=== PATIENT | female | born 1935 | race Caucasian/White ===

== ENCOUNTER 2019-04-19 17:03 | Observation (INO) | payer OTHER ==
--- OUTSIDE RECORDS SUMMARY | 2019-04-19 17:06 | XMS REPORT ---
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 Active Problem Insomnia, unspecified type G47.00 Active Problem Restless leg syndrome G25.81 Active Problem HTN, goal below 150/90 I10 Active Problem Osteoporosis, unspecified M81.0 Active osteoporosis type, unspecified pathological fracture presence Problem Mixed hyperlipidemia E78.2 Active Problem Depression with anxiety F41.8 Active Problem Vitamin D deficiency disease E55.9 Active Problem History of colon cancer Z85.038 Active Problem Osteoporosis without current M81.0 Active pathological fracture, unspecified osteoporosis type Problem History of uterine cancer Z85.42 Active Problem Osteoarthritis, unspecified M19.90 Active osteoarthritis type, unspecified site Problem GERD without esophagitis K21.9 Active Problem Hypothyroidism, unspecified type E03.9 Active Medications No Known Medications Results No Known Results Summary Purpose [facility] Submission
--- OUTSIDE RECORDS SUMMARY | 2019-04-19 17:06 | XMS REPORT ---
:1935 Author Organization [employer] Care Team Providers Name Role Phone Adan Turner Provider Role Unavailable Allergies, Adverse Reactions, Alerts Substance Reaction Event Type Decongestant Info Not Available Drug Allergy Problems Problem Type Condition Code Onset Dates Condition Status Assessment Vitamin D deficiency disease E55.9 Active Assessment History of colon cancer Z85.038 Active Assessment History of uterine cancer Z85.42 Active Assessment Osteoarthritis, unspecified M19.90 Active osteoarthritis type, unspecified site Problem Mixed hyperlipidemia E78.2 Active Assessment Mixed hyperlipidemia E78.2 Active Problem Depression with anxiety F41.8 Active Assessment GERD without esophagitis K21.9 Active Problem 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 Active Problem Insomnia, unspecified type G47.00 Active Problem Restless leg syndrome G25.81 Active Problem Vitamin D deficiency disease E55.9 Active Problem History of colon cancer Z85.038 Active Assessment 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 Active Assessment Insomnia, unspecified type G47.00 Active Problem Osteoporosis without current M81.0 Active pathological fracture, unspecified osteoporosis type Assessment Restless leg syndrome G25.81 Active Problem History of uterine cancer Z85.42 Active Problem Osteoarthritis, unspecified M19.90 Active osteoarthritis type, unspecified site Problem GERD without esophagitis K21.9 Active Problem Hypothyroidism, unspecified type E03.9 Active Assessment HTN, goal below 150/90 I10 Active Assessment Osteoporosis, unspecified M81.0 Active osteoporosis type, unspecified pathological fracture presence Assessment Hypothyroidism, unspecified type E03.9 Active Assessment Palpitations R00.2 Active Problem HTN, goal below 150/90 I10 Active Problem Osteoporosis, unspecified M81.0 Active osteoporosis type, unspecified pathological fracture presence Assessment Depression with anxiety F41.8 Active Medications Medication Code Code Instructions Start End Status Dosage System Date Date Amitriptyline [facility] [place] 73579335319 10 Orally Once Active as directed HCl a day Sotalol HCl [facility] [place] 2] 49988780625 120 mg Orally Active 1 tablet every 12 hrs Diltiazem HCl ER [facility] [place] 2] 67576903849 90 MG Orally Active 1 capsule Twice a day Ropinirole HCl NDC 81283934340 0.5 MG Orally Active 1 tablet Three times a day Prolia [facility] [place] 2] 79817845448 60 MG/ML Active 60 mg Subcutaneous every 6 months Diazepam ND 50449550518 2 MG Orally Active 1 tablet as Twice a day PRN needed Heart Palpitations Clobetasol [facility] [place] 2] 66879966322 0.05 % Active 1 application Propionate E Externally Twice a day Sotalol HCl [facility] [place] 2] 50110323514 120 MG Orally Active 1 tablet every 12 hrs Levothyroxine [facility] [place] 2] 56571854105 25 MCG Orally Active 1 tablet on Sodium Once a day an empty stomach in the morning Dexilant [facility] [place] 2[place] 63023655274 60 MG Orally Active 1 capsule Once a day Pravastatin [facility] [place] 2] 52738759438 40 MG Orally Active 1 tablet Sodium Once a day Acetaminophen [facility] [place] 2] 85751011796 500 MG Orally Active 1 capsule as every 6 hrs needed Vitamin D [facility] [place]NOTE 2] 30158971277 2000 UNIT Active 1 tablet Orally Once a day Eliquis 2.5 mg [facility] [place] 2] 06356036441 2.5 mg by mouth Active one twice daily Paroxetine HCl [facility] [place] 2] 98533640871 10 MG Orally Active 1 tablet in BID the morning Fluticasone [facility] [place] 2] 74070190884 50 MCG/ACT Sept Active 1 spray in Propionate Nasally Once a , each nostril 2018 Glucose [facility] [place]NOTE 2] [address]-74300 1 GM Orally as Sept Active as directed needed 2018 Amitriptyline [facility] [place]NOTE 2] 82027658810 10 MG Orally Active as directed HCl Once a day Results No Known Results Summary Purpose [employer]Works Submission
--- OUTSIDE RECORDS SUMMARY | 2019-04-19 17:06 | XMS REPORT ---
[...] Active Problem Hypothyroidism, unspecified type E03.9 Active Problem HTN, goal below 150/90 I10 Active Problem Osteoporosis, unspecified M81.0 Active osteoporosis type, unspecified pathological fracture presence Assessment GERD without esophagitis K21.9 Active Problem Mixed hyperlipidemia E78.2 Active Problem Depression with anxiety F41.8 Active Medications No Known Medications Results No Known Results Summary Purpose [employer] Submission
--- NOTE | 2019-04-19 17:57 | RAD REPORT ---
EXAM DESCRIPTION: RAD - Chest Single View - 04/19/2019 5:44 pm CLINICAL HISTORY: Abdominal pain, chest pain COMPARISON: None. TECHNIQUE: AP portable chest image was obtained 1739 hours . FINDINGS: Chronic interstitial changes are evident. No focal mass or consolidation identifiable. No acute failure or volume overload. Heart and vasculature are normal. No measurable pleural effusion and no pneumothorax. Left subclavia n pacemaker is in place. No acute bone finding suspected. No acute aortic findings suspected. IMPRESSION: No acute cardiopulmonary process.
[2019-04-19] MEDS ORDERED: PANTOPRAZOLE 40 MG INJ ONE (18:11)
[2019-04-19] MEDS ORDERED: NA CHLORIDE 0.9% 1,000 ML ONE (18:11)
[2019-04-19 18:35] LABS: Absolute Lymphocytes (CBC) 1.8 K/uL (0.7-4.9); Basophils % 0.5 % (0-1.3); Hematocrit 41.6 % (36.0-45.0); Lymphocytes % 32.6 % (15.3-44.8); MPV 7.7 fL (7.6-11.3)
[2019-04-19 18:53] LABS: Protime INR 1.03
[2019-04-19 18:59] LABS: ALT/SGPT 11 U/L (12-78); AST/SGOT 12 U/L (15-37); Albumin 3.5 g/dL (3.4-5.0); Alkaline Phosphatase 60 U/L (45-117); BUN Blood Urea Nitrogen 13 mg/dL (7-18); Bicarbonate 28 mmol/L (21-32); Bilirubin Direct 0.1 mg/dL (0-0.2); Bilirubin Total 0.4 mg/dL (0.2-1.0); Glucose Level 111 mg/dL (74-106); Lipase 58 U/L (73-393); Magnesium 2.1 mg/dL (1.8-2.4); NT PRO-BNP 330 pg/mL (<450); Potassium 3.9 mmol/L (3.5-5.1); Protein, Total 6.7 g/dL (6.4-8.2); Sodium Level 142 mmol/L (136-145); Troponin (Emerg Dept Use Only) < 0.02 ng/mL (0.0-0.045)
[2019-04-19 19:20] LABS: Urine Blood TRACE (NEG); Urine Glucose NEGATIVE (NEG); Urine Protein NEGATIVE (NEG); Urine Specific Gravity 1.015 (1.005-1.030)
--- NOTE | 2019-04-19 19:23 | ER ---
Nurse's Notes [facility] Name: Rachel Ramsay Age: 83 yrs Sex: Female : 1935 Arrival Date: 04/19/2019 Time: 17:05 Bed 28 Private MD: Diagnosis: Abdominal tenderness;Weakness;Gastrointestinal hemorrhage, unspecified-reported;Urinary tract infection, site not specified Presentation: 04/19 17:11 Presenting complaint: Patient states: abd pain chronic, black stools x 4 days. Also sr5 reports palpitations when she eats. Transition of care: patient was not received from another setting of care. Onset of symptoms was April 15, 2019. Risk Assessment: Do you want to hurt yourself or someone else? Patient reports no desire to harm self or others. Initial Sepsis Screen: Does the patient meet any 2 criteria? HR > 90 bpm. Care prior to arrival: None. 17:11 Method Of Arrival: Wheelchair sr5 17:11 Acuity: BRANDI 2 sr5 19:30 Initial Sepsis Screen: Does the patient have a suspected source of infection? No. jv1 Patient's initial sepsis screen is negative. Triage Assessment: 17:14 General: Appears ill, Behavior is cooperative, appropriate for age. sr5 Historical: - Allergies: 17:14 No Known Allergies; sr5 - PMHx: 17:14 chronic diarrhea; colon cancer; uterine cancer; hysterectomy; pacemaker; sr5 gastrointentional mucositis; - Immunization history:: Pneumococcal vaccine is not up to date, Flu vaccine is not up to date. - Social history:: Smoking status: Patient/guardian denies using tobacco, never smoked. - Ebola Screening: : Patient negative for fever greater than or equal to 101.5 degrees Fahrenheit, and additional compatible Ebola Virus Disease symptoms. - Family history:: not pertinent. Screenin:28 Abuse screen: Denies threats or abuse. Denies injuries from another. Nutritional ss screening: No deficits noted. Tuberculosis screening: Never had TB. Fall Risk None identified. Assessment: 18:28 General: Appears in no apparent distress. Behavior is calm, cooperative. Pain: ss Complains of pain in abdomen Pain currently is 0 out of 10 on a pain scale. at worst was 4 out of 10 on a pain scale. Quality of pain is described as aching, Is intermittent. Neuro: Level of Consciousness is awake, alert, obeys commands, Oriented to person, place, time, situation. Cardiovascular: Capillary refill < 3 seconds is brisk in bilateral fingers Patient's skin is warm and dry. Respiratory: Airway is patent Respiratory effort is even, unlabored, Respiratory pattern is regular, symmetrical, Denies cough, shortness of breath. GI: Reports chronic/ watery diarrhea now with black stools x 4 days. GI: Abdomen is non-distended, Bowel sounds present X 4 quads. Abd is soft and non tender X 4 quads. Patient currently denies nausea. : No signs and/or symptoms were reported regarding the genitourinary system. EENT: Nares are clear Oral mucosa is moist. Derm: Skin is intact, is fragile, is thin, Skin is pink, warm \T\ dry. Musculoskeletal: Circulation, motion, and sensation intact. Range of motion: intact in all extremities, Swelling absent. 19:30 Reassessment: pt went to CT scan. jv1 20:00 Reassessment: Patient and/or family updated on plan of care and expected duration. Pain jv1 level reassessed. Patient is alert, oriented x 3, equal unlabored respirations, skin warm/dry/pink. Patient denies pain at this time. Patient states symptoms have improved. pt came back from CT, assisted pt to urinate using bedpan. . 21:00 Reassessment: Patient appears in no apparent distress at this time. Patient and/or jv1 family updated on plan of care and expected duration. Pain level reassessed. Patient is alert, oriented x 3, equal unlabored respirations, skin warm/dry/pink. assisted pt to urinate using bedpan.. 21:54 Reassessment: Patient appears in no apparent distress at this time. Patient and/or jv1 family updated on plan of care and expected duration. Pain level reassessed. Patient is alert, oriented x 3, equal unlabored respirations, skin warm/dry/pink. Patient denies pain at this time. Patient states symptoms have improved. called report to Luciana BARBER. Vital Signs: 17:14 BP 130 / 75; Pulse 122; Resp 18; Temp 98.8; Pulse Ox 97% on R/A; Weight 64.41 kg; sr5 18:27 BP 136 / 59; Pulse 78; Resp 16; Pulse Ox 98% on R/A; ss 19:30 BP 148 / 55; Pulse 76; Resp 18; Temp 98; Pulse Ox 100% on R/A; jv1 20:30 BP 140 / 50; Pulse 72; Resp 18; Temp 98.2; Pulse Ox 98% on R/A; Pain 0/10; jv1 21:17 BP 150 / 59; Pulse 72; Resp 18; Temp 98; Pulse Ox 98% ; Pain 0/10; jv1 22:00 BP 149 / 89; Pulse 80; Resp 18; Temp 98.8; Pulse Ox 100% on R/A; mg2 ED Course: 17:05 Patient arrived in ED. as 17:13 Triage completed. sr5 17:14 Arm band placed on right wrist. sr5 17:19 Ap Humphrey MD is Attending Physician. yin 17:39 Jackie Bourgeois, ELISABETH is Primary Nurse. ss 17:43 XRAY Chest (1 view) In Process Unspecified. EDMS 18:27 No provider procedures requiring assistance completed. Inserted saline lock: 18 gauge mg2 in left EJ, using aseptic technique. Blood collected. by Dr Humphrey. 18:28 Patient has correct armband on for positive identification. Bed in low position. Call ss light in reach. 19:21 Joey Fuentes MD is Hospitalizing Provider. yin 19:31 CT Abd/Pelvis - Without Contrast In Process Unspecified. EDMS 19:32 CT completed. Patient tolerated procedure well. Patient moved to CT via stretcher. Patient moved back from CT. 21:00 Bladder scan completed. 349ml post void. jv1 21:27 Patient admitted, IV remains in place. intact. jv1 Administered Medications: 18:19 Drug: ProTONIX 80 mg Route: IVP; Site: left jugular; ss 22:08 Follow up: Response: No adverse reaction mg2 18:23 Drug: NS 0.9% 500 ml Route: IV; Rate: bolus; Site: left jugular; ss 21:13 Follow up: Response: No adverse reaction; IV Status: Completed infusion; IV Intake: jv1 500ml 21:00 Drug: Rocephin 1 grams Route: IV; Rate: per protocol; Site: left jugular; jv1 21:12 Follow up: Response: No adverse reaction jv1 22:07 Follow up: Response: No adverse reaction; IV Status: Completed infusion mg2 21:12 Drug: NS 0.9% 1000 ml Route: IV; Rate: 125 ml/hr; Site: left jugular; mg2 22:07 Follow up: Response: No adverse reaction; IV Status: Infusion continued upon admission mg2 Point of Care Testing: Guaiac: 18:29 Stool Guaiac: Negative; Stool Hemoccult Control: Pass; yin Intake: 21:13 IV: 500ml; Total: 500ml. jv1 Outcome: 19:22 Decision to Hospitalize by Provider. [facility] 21:27 Admitted to Med/surg family with patient, via stretcher, room 221. jv1 21:27 Condition: improved 21:27 Instructed on the need for admit, Demonstrated understanding of instructions. 22:09 Patient left the ED. mg2 Signatures: Dispatcher [employer] EDAp Lam MD MD cha Hagler, Reina Holliday Shelby, RN RN ss Stanley Campbell RN RN sr5 Manjinder Bejarano RN RN mg2 Radha German RN RN jv1
--- NOTE | 2019-04-19 19:24 | EDPHYS ---
Physician Documentation [facility] Name: Rachel Ramsay Age: 83 yrs Sex: Female : 1935 Arrival Date: 04/19/2019 Time: 17:05 Bed 28 Private MD: ZOYA Physician Ap Humphrey HPI: 04/19 18:25 This 83 yrs old Female presents to ER via Wheelchair with complaints of yin Black/Tarry Stools, Blood Pressure Problem. 18:25 The patient presents with abdominal pain in the upper abdomen, in the lower abdomen, yin abdominal distention. The patient presents to the emergency department with diarrhea, that is continuous. Onset: The symptoms/episode began/occurred 4 week(s) ago. Possible causes: unknown. The symptoms are aggravated by nothing. The symptoms are alleviated by nothing. Modifying factors: The symptoms are alleviated by nothing, the symptoms are aggravated by nothing. Historical: - Allergies: 17:14 No Known Allergies; sr5 - PMHx: 17:14 chronic diarrhea; colon cancer; uterine cancer; hysterectomy; pacemaker; sr5 gastrointentional mucositis; - Immunization history:: Pneumococcal vaccine is not up to date, Flu vaccine is not up to date. - Social history:: Smoking status: Patient/guardian denies using tobacco, never smoked. - Ebola Screening: : Patient negative for fever greater than or equal to 101.5 degrees Fahrenheit, and additional compatible Ebola Virus Disease symptoms. - Family history:: not pertinent. ROS: 18:25 Constitutional: Negative for fever, chills, and weight loss, Eyes: Negative for injury, yin pain, redness, and discharge, ENT: Negative for injury, pain, and discharge, Neck: Negative for injury, pain, and swelling, Respiratory: Negative for shortness of breath, cough, wheezing, and pleuritic chest pain, Back: Negative for injury and pain, : Negative for injury, bleeding, discharge, and swelling, MS/Extremity: Negative for injury and deformity, Skin: Negative for injury, rash, and discoloration, Neuro: Negative for headache, weakness, numbness, tingling, and seizure, Psych: Negative for depression, anxiety, suicide ideation, homicidal ideation, and hallucinations, Allergy/Immunology: Negative for hives, rash, and allergies, Endocrine: Negative for neck swelling, polydipsia, polyuria, polyphagia, and marked weight changes, Hematologic/Lymphatic: Negative for swollen nodes, abnormal bleeding, and unusual bruising. 18:25 Cardiovascular: Positive for palpitations. 18:25 Abdomen/GI: Positive for diarrhea, black stools. Exam: 18:25 Constitutional: This is a well developed, well nourished patient who is awake, alert, yin and in no acute distress. Head/Face: Normocephalic, atraumatic. Eyes: Pupils equal round and reactive to light, extra-ocular motions intact. Lids and lashes normal. Conjunctiva and sclera are non-icteric and not injected. Cornea within normal limits. Periorbital areas with no swelling, redness, or edema. ENT: Nares patent. No nasal discharge, no septal abnormalities noted. Tympanic membranes are normal and external auditory canals are clear. Oropharynx with no redness, swelling, or masses, exudates, or evidence of obstruction, uvula midline. Mucous membranes moist. Neck: Trachea midline, no thyromegaly or masses palpated, and no cervical lymphadenopathy. Supple, full range of motion without nuchal rigidity, or vertebral point tenderness. No Meningismus. Chest/axilla: Normal chest wall appearance and motion. Nontender with no deformity. No lesions are appreciated. Cardiovascular: Regular rate and rhythm with a normal S1 and S2. No gallops, murmurs, or rubs. Normal PMI, no JVD. No pulse deficits. Respiratory: Lungs have equal breath sounds bilaterally, clear to auscultation and percussion. No rales, rhonchi or wheezes noted. No increased work of breathing, no retractions or nasal flaring. Abdomen/GI: Soft, non-tender, with normal bowel sounds. No distension or tympany. No guarding or rebound. No evidence of tenderness throughout. Back: No spinal tenderness. No costovertebral tenderness. Full range of motion. Skin: Warm, dry with normal turgor. Normal color with no rashes, no lesions, and no evidence of cellulitis. MS/ Extremity: Pulses equal, no cyanosis. Neurovascular intact. Full, normal range of motion. Neuro: Awake and alert, GCS 15, oriented to person, place, time, and situation. Cranial nerves II-XII grossly intact. Motor strength 5/5 in all extremities. Sensory grossly intact. Cerebellar exam normal. Normal gait. Psych: Awake, alert, with orientation to person, place and time. Behavior, mood, and affect are within normal limits. 18:25 Abdomen/GI: Inspection: abdomen appears normal, Bowel sounds: normal, Palpation: abdomen is soft and non-tender, soft, nontender, Rectal exam: is unremarkable, rectal tone normal, Stool: guaiac negative, hemorrhoid(s), are not appreciated, mass, is not appreciated, swelling, is not appreciated, tenderness, is not appreciated. 18:29 Abdomen/GI: Rectal exam: fecal impaction, is not appreciated. yin 18:53 Musculoskeletal/extremity: DVT Exam: No signs of deep vein thrombosis. no pain, no yin swelling, no tenderness, negative Homans' sign noted on exam, no appreciated bluish discoloration, no erythema, no increased warmth. Vital Signs: 17:14 BP 130 / 75; Pulse 122; Resp 18; Temp 98.8; Pulse Ox 97% on R/A; Weight 64.41 kg; sr5 18:27 BP 136 / 59; Pulse 78; Resp 16; Pulse Ox 98% on R/A; ss 19:30 BP 148 / 55; Pulse 76; Resp 18; Temp 98; Pulse Ox 100% on R/A; jv1 20:30 BP 140 / 50; Pulse 72; Resp 18; Temp 98.2; Pulse Ox 98% on R/A; Pain 0/10; jv1 21:17 BP 150 / 59; Pulse 72; Resp 18; Temp 98; Pulse Ox 98% ; Pain 0/10; jv1 22:00 BP 149 / 89; Pulse 80; Resp 18; Temp 98.8; Pulse Ox 100% on R/A; mg2 Procedures: 18:54 Peripheral line: by aseptic technique a peripheral line was placed in the left external yin jugular vein. MDM: 17:19 Patient medically screened. [facility] 18:30 Data reviewed: vital signs, nurses notes, lab test result(s), EKG, radiologic studies, [facility] CT scan, plain films. 04/19 17:28 Order name: Basic Metabolic Panel; Complete Time: 19:18 yin 04/19 17:28 Order name: CBC with Diff; Complete Time: 19:18 [facility] 04/19 17:28 Order name: LFT's; Complete Time: 19:18 [facility] 04/19 17:28 Order name: Magnesium; Complete Time: 19:18 [facility] 04/19 17:28 Order name: NT PRO-BNP; Complete Time: 19:18 [facility] 04/19 17:28 Order name: PT-INR; Complete Time: 19:18 [facility] 04/19 17:28 Order name: Troponin (emerg Dept Use Only); Complete Time: 19:18 [facility] 04/19 17:28 Order name: Lipase; Complete Time: 19:18 [facility] 04/19 17:28 Order name: Type And Screen; Complete Time: 19:31 [facility] 04/19 17:28 Order name: Urine Culture [facility] 04/19 19:16 Order name: Urine Dipstick--Ancillary (enter results); Complete Time: 19:31 cm6 04/19 20:04 Order name: ABO/RH no charge EDTN 04/19 20:42 Order name: CBC with Automated Diff EDMS 04/19 20:42 Order name: CBC with Automated Diff EDMS 04/19 17:28 Order name: XRAY Chest (1 view); Complete Time: 18:54 [facility] 04/19 17:28 Order name: EKG; Complete Time: 17:29 [facility] 04/19 17:28 Order name: Cardiac monitoring; Complete Time: 18:27 [facility] 04/19 17:28 Order name: EKG - Nurse/Tech; Complete Time: 18:27 [facility] 04/19 18:32 Order name: CT Abd/Pelvis - Without Contrast [facility] 04/19 20:42 Order name: Heart Healthy EDTN 04/19 20:42 Order name: Comprehensive Metabolic Panel [facility] 04/19 20:42 Order name: Comprehensive Metabolic Panel [facility] 04/19 20:42 Order name: Magnesium EDMS 04/19 20:42 Order name: Magnesium EDMS 04/19 20:42 Order name: Phosphorus EDMS 04/19 20:42 Order name: Phosphorus EDMS 04/19 17:28 Order name: IV Saline Lock; Complete Time: 18:27 [facility] 04/19 17:28 Order name: Labs collected and sent; Complete Time: 18:27 [facility] 04/19 17:28 Order name: O2 Per Protocol; Complete Time: 18:27 [facility] 04/19 17:28 Order name: O2 Sat Monitoring; Complete Time: 18:27 [facility] 04/19 17:28 Order name: Urine Dipstick-Ancillary (obtain specimen); Complete Time: 21:12 [facility] 04/19 17:28 Order name: IV Saline Lock - Large Bore; Complete Time: 18:23 [facility] 04/19 18:12 Order name: Labs - recollect needed: blue top, green top and T\T\S recollect please; eb Complete Time: 18:23 04/19 18:18 Order name: Labs - recollect needed: lavender top recollect; Complete Time: 18:23 04/19 20:58 Order name: Bladder Scanner: ordered by Dr. Fuentes if above 500ml, PVR, insert castro jv1 catheter.; Complete Time: 21:11 Administered Medications: 18:19 Drug: ProTONIX 80 mg Route: IVP; Site: left jugular; ss 22:08 Follow up: Response: No adverse reaction mg2 18:23 Drug: NS 0.9% 500 ml Route: IV; Rate: bolus; Site: left jugular; ss 21:13 Follow up: Response: No adverse reaction; IV Status: Completed infusion; IV Intake: jv1 500ml 21:00 Drug: Rocephin 1 grams Route: IV; Rate: per protocol; Site: left jugular; jv1 21:12 Follow up: Response: No adverse reaction jv1 22:07 Follow up: Response: No adverse reaction; IV Status: Completed infusion mg2 21:12 Drug: NS 0.9% 1000 ml Route: IV; Rate: 125 ml/hr; Site: left jugular; mg2 22:07 Follow up: Response: No adverse reaction; IV Status: Infusion continued upon admission mg2 Point of Care Testing: Guaiac: 18:29 Stool Guaiac: Negative; Stool Hemoccult Control: Pass; [facility] Disposition: 04/19/19 19:22 Hospitalization ordered by Joey Fuentes for Observation. Preliminary diagnosis are Abdominal tenderness, Weakness, Gastrointestinal hemorrhage, unspecified - reported, Urinary tract infection, site not specified. - Bed requested for Telemetry/MedSurg (observation). - Status is Observation. mg2 - Condition is Fair. - Problem is new. - Symptoms have improved. UTI on Admission? Yes Signatures: Dispatcher [employer] EDTN Ap Humphrey MD MD cha Smirch, Shelby, RN RN ss Terrie Birch RN RN Stanley Campbell RN RN sr5 Tyra Rios Manjinder Bejarano RN RN mg2 Radha German RN RN jv1 Corrections: (The following items were deleted from the chart) 20:56 19:22 Hospitalization Ordered by Joey Fuentes MD for Observation. Preliminary cg diagnosis is Abdominal tenderness; Weakness; Gastrointestinal hemorrhage, unspecified - reported; Urinary tract infection, site not specified. Bed requested for Telemetry/MedSurg (observation). Status is Observation. Condition is Fair. Problem is new. Symptoms have improved. UTI on Admission? Yes. yin 20:58 19:37 Bladder Scanner ordered. yin jv1 22:09 20:56 04/19/2019 19:22 Hospitalization Ordered by Joey Fuentes MD for Observation. mg2 Preliminary diagnosis is Abdominal tenderness; Weakness; Gastrointestinal hemorrhage, unspecified - reported; Urinary tract infection, site not specified. Bed requested for Telemetry/MedSurg (observation). Status is Observation. Condition is Fair. Problem is new. Symptoms have improved. UTI on Admission? Yes. cg
--- NOTE | 2019-04-19 19:49 | RAD REPORT ---
EXAM DESCRIPTION: CT - Abdomen Pelvis Wo Contrast - 04/19/2019 7:31 pm CLINICAL HISTORY: ABD PAIN Patient provided history of colon and uterine cancer, prior hysterectomy COMPARISON: Abdomen Pelvis W/Wo Contrast dated 10/23/2018 TECHNIQUE: Axial [address] imaging of the abdomen and pelvis was performed without IV contrast. No IV contrast was given because of allergy, abnormal renal function, patient refusal or physician re quest. No oral contrast given. All CT scans are performed using dose optimization technique as appropriate and may include automated exposure control or mA/KV adjustment according to patient size. FINDINGS: No suspicious findings in the lung bases. The liver, spleen and pancreas show no suspicious findings on non-contrast imaging. Multiple liver cy sts match prior imaging. Gallbladder and biliary tree show no suspicious findings. No hydronephrosis or suspicious renal mass. Isodense exophytic mass lateral left kidney corresponds t o a cyst on the comparison examination. A larger exophytic cyst is present lateral mid left kidney. N o significant adrenal finding. Isodense renal masses and pyelonephritis cannot be excluded in the abs ence of IV contrast. The urinary bladder is without significant finding. Uterus is absent. Ovaries ar e absent or atrophic. No adnexal abnormality seen. No gastric dilatation or wall thickening. No dilated small bowel. Right hemicolectomy surgical change s are present. No acute small bowel finding. No abnormality at the anastomotic site. Sigmoid divertic ulosis is present without diverticulitis. No free air, free fluid or inflammatory stranding. No edmar ia, mass or bulky lymphadenopathy. No suspicious bony findings. IMPRESSION: Non-contrast enhanced CT abdomen and pelvis imaging show no significant or suspicious fi nding. No evidence for a residual or recurrent neoplastic process. Isodense renal masses and pyelonephritis are not excluded on noncontrast imaging. Full assessment is limited is the absence of IV contrast.
[2019-04-19] MEDS ORDERED: ONDANSETRON 4 MG/2 ML VIAL IV PRN (20:38)
[2019-04-19] MEDS: PANTOPRAZOLE 40MG TABLET PO SCH (20:41)
[2019-04-19] MEDS ORDERED: MAGNES/ALUMIN/SIMET 30ML UCUP PO PRN (20:41)
--- NOTE | 2019-04-19 20:46 | P.HP ---
Certification for Inpatient Patient admitted to: Observation With expected LOS: <2 Midnights Patient will require the following post-hospital care: None Practitioner: I am a practitioner with admitting privileges, knowledge of patient current condition, hospital course, and medical plan of care. Services: Services provided to patient in accordance with Admission requirements found in Title 42 Section 412.3 of the Code of Federal Regulations Patient History Date of Service: 04/19/19 Reason for admission: Abdominal pain, diarrhea History of Present Illness: 83-year-old female with past medical history of colon cancer came to ER with diarrhea and abdominal pain. Patient that and had chronic diarrhea but worsened for the last 2 days associated with abdominal distention and pain. Complains of black dark stools. denies any hematemesis. Also complains of abdominal distention. no dysuria. no nausea vomiting. denies any fever or chills No sick contacts or recent travel Patient was assessed in the ER and was admitted for dehydration and abdominal pain control. - Past Medical/Surgical History Past Medical History: Reviewed- Non-Contributory -: Colon cancer -: Chronic diarrhea Past Surgical History: Reviewed- Non-Contributory -: hysterectomy - Family History Family History: Reviewed- Non-Contributory - Social History Smoking Status: Never smoker Review of Systems 10-point ROS is otherwise unremarkable Physical Examination - Vital Signs Temperature: 98.8 F Blood Pressure: 132/76 Pulse: 112 Respirations: 18 - Physical Exam General: Alert, In no apparent distress, Oriented x3 HEENT: Atraumatic, Normocephalic Neck: Supple, 2+ carotid pulse no bruit Respiratory: Clear to auscultation bilaterally, Normal air movement Cardiovascular: No edema, Regular rate/rhythm, Normal S1 S2 Capillary refill: <2 Seconds Gastrointestinal: Soft and benign, W/out hepatosplenomegaly, Distended Musculoskeletal: No clubbing, No swelling Integumentary: No rashes, No breakdown, Other (intertrigo) Neurological: Normal speech, Normal strength at 5/5 x4 extr Lymphatics: No axilla or inguinal lymphadenopathy Urinary: Other (No bladder distention) External genitalia: Deferred Rectal: Deferred - Studies Laboratory Data (last 24 hrs) 04/19/19 18:20: PT 12.1, INR 1.03 04/19/19 18:20: WBC 5.6, Hgb 14.2, Hct 41.6, Plt Count 218 04/19/19 18:20: Sodium 142, Potassium 3.9, BUN 13, Creatinine 0.90, Glucose 111 H, Magnesium 2.1, Total Bilirubin 0.4, AST 12 L, ALT 11 L, Alkaline Phosphatase 60, Lipase 58 L Assessment and Plan - Problems (Diagnosis) (1) Abdominal pain Current Visit: Yes Status: Acute (2) Diarrhea Current Visit: Yes Status: Acute (3) Colitis Current Visit: Yes Status: Acute - Plan Gastroenteritis Abdominal pain To rule out GI bleed History of colon cancer Plan Monitor under inside sales supervisor the CBC daily Will get an FOBT Pain control IV Hydration Start on PPI Monitor renal parameters GI/DVT prophylaxis Advanced directives full code Discharge Plan: Home - Advance Directives Does patient have a Living Will: No Does patient have a Durable POA for Healthcare: No Time Spent Managing Pts Care (In Minutes): 43
[2019-04-19] MEDS: NYSTATIN OINT 15 GM TUBE TOP SCH (21:00)
[2019-04-19] MEDS ORDERED: CEFTRIAXONE/SWI 1gm 1 GM/10 ML SYR ONE (21:06)
[2019-04-19 22:54] VITALS: BMI 23.2
[2019-04-20] MEDS: NA CHLORIDE 0.9% 1,000 ML IV SCH ×2 (00:29→16:33)
[2019-04-20] MEDS ORDERED: DIAZEPAM 2 MG TABLET PO PRN (00:52)
[2019-04-20] MEDS: ROPINIROLE HCL 0.25 MG TAB PO SCH ×4 (01:22→21:00)
[2019-04-20] MEDS: ACETAMINOPHEN 500 MG TAB PO PRN ×3 (01:23→22:00)
[2019-04-20 05:05] LABS: Absolute Lymphocytes (CBC) 2.5 K/uL (0.7-4.9); Basophils % 0.5 % (0-1.3); Hematocrit 39.2 % (36.0-45.0); Lymphocytes % 46.7 % (15.3-44.8); MPV 7.8 fL (7.6-11.3); RBC Red Blood Cell Count 4.25 M/uL (3.86-4.86)
[2019-04-20 05:29] LABS: Albumin 3.1 g/dL (3.4-5.0); Bilirubin Total 0.4 mg/dL (0.2-1.0); Magnesium 2.3 mg/dL (1.8-2.4); Phosphorus 2.5 mg/dL (2.5-4.9); Potassium 4.1 mmol/L (3.5-5.1)
[2019-04-20] MEDS: PANTOPRAZOLE 40MG TABLET PO SCH ×2 (08:33→16:31)
[2019-04-20] MEDS: NYSTATIN OINT 15 GM TUBE TOP SCH ×3 (08:34→21:59)
--- NOTE | 2019-04-20 11:44 | EKG ---
Test Date: 2019-04-19 Test Time: 17:32:12 Manager Hospital: [facility] MEASUREMENT RESULTS: Intervals: Rate: 88 AL: 122 QRSD: 78 QT: 340 QTc: 411 [place]: P: 60 AL: 122 QRS: 60 T: 69 INTERPRETIVE STATEMENTS: Normal sinus rhythm Nonspecific ST abnormality Abnormal ECG No previous ECG available for comparison Electronically Signed On 04-20-19 11:42:03 HEALTHCARE ADVISORY SERVICES MANAGER by Felipe Shane
[2019-04-20] MEDS ORDERED: INFLUENZA VACCINE (for 3y+) 0.5 ML DOSE IMVAC ONE (12:00)
--- NOTE | 2019-04-20 12:28 | P.PN ---
Subjective Date of Service: 04/20/19 Chief Complaint: Abdominal pain, diarrhea Subjective: C/O voiced (=-multiple complains today -state poor po intake since 3 months due to dentures issues, states pureed diet but poorly getting from the assisted living facility states diarrhea with occ dark stools since weeks but no bowel movt since yesterday -states she has colon resection in the past but biopsy of sample was benign -states issues with ingrown toe nails,although states she sees podiatry - feels weak all the time -) Review of Systems 10-point ROS is otherwise unremarkable Physical Examination - Vital Signs Temperature: 97.3 F Blood Pressure: 122/60 Pulse: 64 Respirations: 18 Pulse Ox (%): 97 - Physical Exam General: Alert, Oriented x3 HEENT: Atraumatic, Normocephalic, PERRLA Neck: Supple, 2+ carotid pulse no bruit Respiratory: Clear to auscultation bilaterally, Normal air movement Cardiovascular: Normal pulses, Regular rate/rhythm, Normal S1 S2 Gastrointestinal: Normal bowel sounds, Soft and benign Musculoskeletal: No clubbing, No swelling, No contractures Integumentary: No rashes, No breakdown, No significant lesion Neurological: Normal gait, Normal speech, Normal strength at 5/5 x4 extr, Normal tone - Studies Laboratory Data (last 24 hrs) 04/19/19 18:20: PT 12.1, INR 1.03 04/19/19 18:20: WBC 5.6, Hgb 14.2, Hct 41.6, Plt Count 218 04/19/19 18:20: Sodium 142, Potassium 3.9, BUN 13, Creatinine 0.90, Glucose 111 H, Magnesium 2.1, Total Bilirubin 0.4, AST 12 L, ALT 11 L, Alkaline Phosphatase 60, Lipase 58 L Medications List Reviewed: Yes Assessment & Plan - Problems (Diagnosis) (1) Abdominal pain Current Visit: Yes Status: Acute (2) Colitis Current Visit: Yes Status: Acute (3) Diarrhea Current Visit: Yes Status: Acute Physician Review: Patient Assessed, Agree with Above Assessment and Plan Physician Review Additional Text: # 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 -unclear from her report if any recent chnage in pattern of stool output now - will follow bowel movt and see if dark -doubt she will need a repeat GI evla or colonoscopy now - noted hx of no colon cancer in the past # weakness and multiple symptoms complains - appears patient wants increased help at home due to her weakness but not willing to seek NH due to cost -will consult case mgt in am and see if any added support can be arranged for her at the assisted living facility # Weight loss -due to reduced calorie intake from edentulous teeth -start [facility] soft diet # CHF/AICD hx -stable
[2019-04-20] MEDS ORDERED: LEVOTHYROXINE SOD 0.05 MG TABLET PO SCH (12:34)
[2019-04-20] MEDS: PARoxetine HCl 10 MG TAB PO SCH (12:34)
[2019-04-20] MEDS ORDERED: HOME MED 1 EA UNK (Omeprazole Magnesium [Prilosec Otc] 20 MG) PO PRN (12:34)
[2019-04-20] MEDS ORDERED: ACETAMINOPHEN 500 MG TAB PO PRN (12:34)
[2019-04-20] MEDS: APIXABAN 2.5 MG TABLET PO SCH (21:00)
[2019-04-20] MEDS: HOME MED 1 EA UNK (Cholecalciferol (Vitamin D3) [Vitamin D3] 1 CAP) PO SCH (21:00)
[2019-04-20] MEDS: DIAZEPAM 2 MG TABLET PO SCH (21:00)
[2019-04-20] MEDS: DILTIAZEM HCL 90 MG PO SCH (21:00)
[2019-04-20] MEDS: SOTALOL HCL 80 MG TAB PO SCH (21:00)
[2019-04-20] MEDS ORDERED: AMITRIPTYLINE 10 MG TAB PO SCH ×2 (21:00)
[2019-04-21] MEDS: PARoxetine HCl 10 MG TAB PO SCH (06:00)
[2019-04-21] MEDS ORDERED: LEVOTHYROXINE SOD 0.05 MG TABLET PO SCH (06:30)
[2019-04-21 06:41] LABS: Basophils % 0.3 % (0-1.3); Hematocrit 36.3 % (36.0-45.0); Lymphocytes % 43.8 % (15.3-44.8); MPV 7.8 fL (7.6-11.3); RBC Red Blood Cell Count 3.92 M/uL (3.86-4.86)
[2019-04-21] MEDS: PANTOPRAZOLE 40MG TABLET PO SCH (07:30)
--- NOTE | 2019-04-21 08:10 | P.DS ---
Admission Date: 04/19/19 Discharge Date: 04/21/19 Primary Care Provider: Dr. Turner Disposition: ROUTINE DISCHARGE Discharge Condition: GOOD Reason for Admission: Abdominal pain, diarrhea Consultations: none Procedures: Ct scan: FINDINGS: No suspicious findings in the lung bases. The liver, spleen and pancreas show no suspicious findings on non-contrast imaging. Multiple liver cysts match prior imaging. Gallbladder and biliary tree show no suspicious findings. No hydronephrosis or suspicious renal mass. Isodense exophytic mass lateral left kidney corresponds to a cyst on the comparison examination. A larger exophytic cyst is present lateral mid left kidney. No significant adrenal finding. Isodense renal masses and pyelonephritis cannot be excluded in the absence of IV contrast. The urinary bladder is without significant finding. Uterus is absent. Ovaries are absent or atrophic. No adnexal abnormality seen. No gastric dilatation or wall thickening. No dilated small bowel. Right hemicolectomy surgical changes are present. No acute small bowel finding. No abnormality at the anastomotic site. Sigmoid diverticulosis is present without diverticulitis. No free air, free fluid or inflammatory stranding. No hernia, mass or bulky lymphadenopathy. No suspicious bony findings. IMPRESSION: Non-contrast enhanced CT abdomen and pelvis imaging show no significant or suspicious finding. No evidence for a residual or recurrent neoplastic process. Isodense renal masses and pyelonephritis are not excluded on noncontrast imaging. Full assessment is limited is the absence of IV contrast. Medical problem List: Abdominal pain with likely viral gastroenteritis Chronic diarrhea History of colon cancer CAD with pacemaker Atrial fibrillation on chronic anti coagulation therapy Hypertension Hyperlipidemia Depression with anxiety Hypothyroidism GERD Ingrown toenail Brief History of Present Illness: 83-year-old female presented to the emergency room with abdominal pain. Patient with history of colon cancer in the past. Initial CT scan unremarkable. Patient was admitted for further evaluation. Hospital Course: Patient presented with abdominal pain. Patient was admitted for observation and evaluation. CT scan unremarkable. Patient reports a history of chronic diarrhea with history of colon cancer. Patient also reports a history of chronic diarrhea. Patient did well in her stay. At discharge she is without significant abdominal pain. She is able to tolerate a diet. Patient likely with viral gastroenteritis. Patient may continue with heart healthy diet. Due to her chronic diarrhea, patient may take Imodium as needed for diarrhea. Recommend to follow up with GI as an outpatient to further monitor and address. Patient has an appointment here soon. Patient may require colonoscopy in the future. Patient with history of CAD with pacemaker in place, hypertension and atrial fibrillation on chronic anti coalition therapy. At discharge she will continue with her medications including Eliquis 2.5 mg 1 pill twice daily, Betapace 120 mg 1 pill twice daily, and diltiazem 90 mg 1 pill twice daily. Recommend to follow up with cardiology to further monitor and address. Patient with hyperlipidemia. At discharge will continue with pravastatin 40 mg daily. Patient with hypothyroidism. At discharge she will continue with levothyroxine 50 mcg daily. Patient with depression and anxiety. She will continue with Paxil 40 mg daily and Valium 2 mg twice daily. Patient with history of GERD. At discharge she will continue with Prilosec 20 mg daily. Patient also has history of chronic ingrown toenail. Will recommend podiatry evaluation and treatment in the future. Vital Signs/Physical Exam: Temp Pulse Resp BP Pulse Ox 97.2 F 69 17 107/53 L 90 L 04/21/19 04:00 04/21/19 04:00 04/21/19 04:00 04/21/19 04:00 04/21/19 04:00 General: Alert, In no apparent distress, Oriented x3, Cooperative HEENT: Atraumatic Neck: Supple Respiratory: Clear to auscultation bilaterally, Normal air movement Cardiovascular: Normal pulses, Regular rate/rhythm Gastrointestinal: Normal bowel sounds, Soft and benign, Non-distended, No tenderness, No masses, No rebound, No guarding Musculoskeletal: No erythema, No tenderness, No warmth Integumentary: No tenderness/swelling, No erythema, No warmth, No cyanosis Neurological: Normal speech, Normal strength at 5/5 x4 extr, Normal tone, Normal affect Laboratory Data at Discharge: WBC 4.6 K/uL (4.3-10.9) D 04/21/19 05:48 Hgb 12.1 g/dL (12.0-15.0) 04/21/19 05:48 Hct 36.3 % (36.0-45.0) 04/21/19 05:48 Plt Count 181 K/uL (152-406) 04/21/19 05:48 PT 12.1 SECONDS (9.5-12.5) 04/19/19 18:20 INR 1.03 04/19/19 18:20 Sodium 144 mmol/L (136-145) 04/20/19 04:33 Potassium 4.1 mmol/L (3.5-5.1) 04/20/19 04:33 BUN 10 mg/dL (7-18) 04/20/19 04:33 Creatinine 0.75 mg/dL (0.55-1.3) 04/20/19 04:33 Glucose 87 mg/dL (74-106) 04/20/19 04:33 Phosphorus 2.5 mg/dL (2.5-4.9) 04/20/19 04:33 Magnesium 2.3 mg/dL (1.8-2.4) 04/20/19 04:33 Total Bilirubin 0.4 mg/dL (0.2-1.0) 04/20/19 04:33 AST 12 U/L (15-37) L 04/20/19 04:33 ALT 11 U/L (12-78) L 04/20/19 04:33 Alkaline Phosphatase 45 U/L (45-117) 04/20/19 04:33 Lipase 58 U/L (73-393) L 04/19/19 18:20 Home Medications: Acetaminophen [Pain Relief Extra Strength] 500 mg PO BID PRN 04/19/19 Amitriptyline HCl 10 mg PO BEDTIME 04/19/19 Apixaban [Eliquis *] 2.5 mg PO BID 04/19/19 Cholecalciferol (Vitamin D3) [Vitamin D3] 1 cap PO BID 04/19/19 Levothyroxine Sodium [Synthroid] 50 mcg PO DAILY 04/19/19 Omeprazole Magnesium [Prilosec Otc] 20 mg PO DAILY PRN 04/19/19 PARoxetine HCl [Paxil*] 10 mg PO [id number] 04/19/19 Pravastatin Sodium [Pravachol] 40 mg PO BEDTIME 04/19/19 Ropinirole HCl [Requip*] 0.5 mg PO TID 04/19/19 Sotalol HCl [Betapace*] 120 mg PO BID 04/19/19 diazePAM [Valium*] 2 mg PO BID 04/19/19 dilTIAZem HCL [Diltiazem HCl] 90 mg PO BID 04/19/19 Patient Discharge Instructions: 1. Recommend follow up with PCP in 1 week to follow up this hospitalization. 2. Patient presented with abdominal pain. Patient was admitted for observation and evaluation. CT scan unremarkable. Patient reports a history of chronic diarrhea with history of colon cancer. Patient also reports a history of chronic diarrhea. Patient did well in her stay. At discharge she is without significant abdominal pain. She is able to tolerate a diet. Patient likely with viral gastroenteritis. Patient may continue with heart healthy diet. Due to her chronic diarrhea, patient may take Imodium as needed for diarrhea. Recommend to follow up with GI as an outpatient to further monitor and address. Patient has an appointment here soon. Patient may require colonoscopy in the future. 3. Patient with history of CAD with pacemaker in place, hypertension and atrial fibrillation on chronic anti coalition therapy. At discharge she will continue with her medications including Eliquis 2.5 mg 1 pill twice daily, Betapace 120 mg 1 pill twice daily , and diltiazem 90 mg 1 pill twice daily. Recommend to follow up with cardiology to further monitor and address. 4. Patient with hyperlipidemia. At discharge will continue with pravastatin 40 mg daily. 5. Patient with hypothyroidism. At discharge she will continue with levothyroxine 50 mcg daily. 6. Patient with depression and anxiety. She will continue with Paxil 40 mg daily and Valium 2 mg twice daily. 7. Patient with history of GERD. At discharge she will continue with Prilosec 20 mg daily. 8. Patient also has history of chronic ingrown toenail. Will recommend podiatry evaluation and treatment in the future. Diet: AHA Activity: Fall precautions Time spent managing pt's care (in minutes): 55
[2019-04-21] MEDS: SOTALOL HCL 80 MG TAB PO SCH ×2 (09:00→10:05)
[2019-04-21] MEDS: HOME MED 1 EA UNK (Cholecalciferol (Vitamin D3) [Vitamin D3] 1 CAP) PO SCH (09:00)
[2019-04-21] MEDS: ROPINIROLE HCL 0.25 MG TAB PO SCH (09:00)
[2019-04-21] MEDS: NYSTATIN OINT 15 GM TUBE TOP SCH (09:00)
[2019-04-21] MEDS: DILTIAZEM HCL 90 MG PO SCH (09:00)
[2019-04-21] MEDS: APIXABAN 2.5 MG TABLET PO SCH (09:00)
[2019-04-21] MEDS: DIAZEPAM 2 MG TABLET PO SCH (09:00)
[2019-04-21 12:45] VITALS: O2SAT 95
[2019-04-21 13:40] VITALS: BP 129/63; TEMP 98.7
[2019-04-21] MEDS ORDERED: DILTIAZEM HCL 60 MG TAB PO SCH (21:00)
[2019-04-21] MEDS ORDERED: VITAMIN D 1000 UNIT TAB PO SCH (21:00)
== END 2019-04-21 12:18 | disposition home or self-care (01) ==
LOC: ER 17:03 → ERHOLD 21:16 → 2ND 21:55
PROVIDERS: ADMIT Family Medicine; ATTEND Family Medicine
DX: R10.9 Unspecified abdominal pain (principal); R19.7 Diarrhea, unspecified; Z85.038 Personal history of other malignant neoplasm of large intestine; I25.10 Atherosclerotic heart disease of native coronary artery without angina pectoris; Z95.0 Presence of cardiac pacemaker; I48.91 Unspecified atrial fibrillation; Z79.01 Long term (current) use of anticoagulants; I10 Essential (primary) hypertension; E78.5 Hyperlipidemia, unspecified; F41.8 Other specified anxiety disorders; E03.9 Hypothyroidism, unspecified; K21.9 Gastro-esophageal reflux disease without esophagitis; L60.0 Ingrowing nail; R63.4 Abnormal weight loss; Z68.23 Body mass index [BMI] 23.0-23.9, adult; Z23 Encounter for immunization
CPT/HCPCS: 96365; 96361; 93005; 87088; 85025 ×3; 87086; 80048; 36415 ×2; 86900; 83735 ×2; 86850; 84100; 85610; 86901; 80076; 81003; 84484; 83690; 80053; 83880; 74176; 71045; 90471; 96375; 99285; Q2035; C9113; J0696; J7030 ×3; J2405; G0378 ×3

== ENCOUNTER 2019-06-04 05:23 | Observation (INO) | payer MEDICARE, OTHER ==
--- OUTSIDE RECORDS SUMMARY | 2019-06-04 05:25 | XMS REPORT ---
[...] osteoporosis type, unspecified pathological fracture presence Assessment Palpitations R00.2 Active Problem Mixed hyperlipidemia E78.2 Active Problem Depression with anxiety F41.8 Active Medications Medication Code System Code Instructions Start End Date Status Dosage Date Diazepam [facility] 2001 82920140036 2 MG Orally Twice Active 1 tablet a day PRN Heart as needed Palpitations Results No Known Results Summary Purpose eClinicalWorks Submission
--- OUTSIDE RECORDS SUMMARY | 2019-06-04 05:25 | XMS REPORT ---
[...] Medications Results No Known Results Summary Purpose [employer] Submission
--- OUTSIDE RECORDS SUMMARY | 2019-06-04 05:25 | XMS REPORT ---
[...] End Status Dosage System Date Date Amitriptyline [facility] 36168493779 10 Orally Once Active as directed HCl a day Sotalol HCl [facility] 37627864556 120 mg Orally Active 1 tablet every 12 hrs Diltiazem HCl ER [facility] 22026267403 90 MG Orally Active 1 capsule Twice a day Ropinirole HCl NDC 72031812395 0.5 MG Orally Active 1 tablet Three times a day Prolia [facility] 97314857936 60 MG/ML Active 60 mg Subcutaneous every 6 months Diazepam ND 32079317350 2 MG Orally Active 1 tablet as Twice a day PRN needed Heart Palpitations Clobetasol [facility] 44927061748 0.05 % Active 1 application Propionate E Externally Twice a day Sotalol HCl [facility] 81305683233 120 MG Orally Active 1 tablet every 12 hrs Levothyroxine [facility] 25425227869 25 MCG Orally Active 1 tablet on Sodium Once a day an empty stomach in the morning Dexilant [facility] 94531652084 60 MG Orally Active 1 capsule Once a day Pravastatin [facility] 24975011751 40 MG Orally Active 1 tablet Sodium Once a day Acetaminophen [facility] 22062946506 500 MG Orally Active 1 capsule as every 6 hrs needed Vitamin D [facility] 06212548611 2000 UNIT Active 1 tablet Orally Once a day Eliquis 2.5 mg [facility] 90079248236 2.5 mg by mouth Active one twice daily Paroxetine HCl [facility] 13005973111 10 MG Orally Active 1 tablet in BID the morning Fluticasone [facility] 52074534197 50 MCG/ACT Sept Active 1 spray in Propionate Nasally Once a , each nostril 2018 Glucose [facility] 71618-46567 1 GM Orally as Sept Active as directed needed 2018 Amitriptyline [facility] 71073300014 10 MG Orally Active as directed HCl Once a day Results No Known Results Summary Purpose eClinicalWorks Submission
--- OUTSIDE RECORDS SUMMARY | 2019-06-04 05:26 | XMS REPORT ---
:1935 Author Organization eClinicalWorks Care Team Providers Name Role Phone Adan Turner Provider Role Unavailable Allergies, Adverse Reactions, Alerts Substance Reaction Event Type Decongestant Info Not Available Drug Allergy Problems Problem Type Condition Code Onset Dates Condition Status Assessment History of diverticulitis Z87.19 Active Assessment Dermatitis L30.9 Active Assessment Vitamin D deficiency disease E55.9 Active [...] Start End Status Dosage System Date Date Paroxetine HCl [facility] 40297128390 10 MG Orally Active 1 tablet in BID the morning Sotalol HCl [facility] 98242737840 120 MG Orally Active 1 tablet every 12 hrs Carafate [facility] 05621835481 1 GM/10ML Active 10 ml on an Orally Twice a empty stomach day Prolia [facility] 79837638918 60 MG/ML Active 60 mg Subcutaneous every 6 months Clobetasol [facility] 43780611199 0.05 % May 15May Active 1 application Propionate Externally 2019 05, Twice a day 2019 Pravastatin [facility] 31782609889 40 MG Orally Active 1 tablet Sodium Once a day Eliquis 2.5 mg [facility] 06504129834 2.5 mg by Active one mouth twice daily Diazepam [facility] 47919862676 2 MG Orally Active 1/2 tablet as Twice a day needed PRN Heart Palpitations Dexilant [facility] 40013488342 60 MG Orally Inactive 1 capsule Once a day Diltiazem HCl ER [facility] 22997864063 90 MG Orally Active 1 capsule Twice a day Omeprazole [facility] 06456172702 40 MG Orally Active 1 capsule 30 Once a day minutes before morning meal Vitamin D [facility] 68351285514 2000 UNIT Active 1 tablet Orally Once a day Glucose [facility] 76006-51336 1 GM Orally as Sept Active as directed needed 2018 Amitriptyline [facility] 59820439007 10 MG Orally Active as directed HCl Once a day Sotalol HCl [facility] 94760676742 120 mg Orally Active 1 tablet every 12 hrs Ropinirole HCl [facility] 69572805771 0.5 MG Orally Active 1 tablet Three times a day Levothyroxine [facility] 75813359990 25 MCG Orally Active 1 tablet on Sodium Once a day an empty stomach in the morning Results No Known Results Summary Purpose eClinicalWorks Submission
--- OUTSIDE RECORDS SUMMARY | 2019-06-04 05:26 | XMS REPORT ---
[...] Medications Results No Known Results Summary Purpose [employer] Submission
[2019-06-04 06:06] LABS: Protime INR 1.11
[2019-06-04 06:08] LABS: Absolute Lymphocytes (CBC) 2.7 K/uL (0.7-4.9); Basophils % 0.4 % (0-1.3); Hematocrit 41.9 % (36.0-45.0); Lymphocytes % 46.2 % (15.3-44.8); RBC Red Blood Cell Count 4.58 M/uL (3.86-4.86)
[2019-06-04] MEDS ORDERED: NA CHLORIDE 0.9% 500 ML ONE (06:15)
[2019-06-04 06:34] LABS: ALT/SGPT 9 U/L (12-78); AST/SGOT 11 U/L (15-37); Albumin 3.6 g/dL (3.4-5.0); Alkaline Phosphatase 57 U/L (45-117); BUN Blood Urea Nitrogen 21 mg/dL (7-18); Bicarbonate 29 mmol/L (21-32); Bilirubin Direct 0.1 mg/dL (0-0.2); Bilirubin Total 0.4 mg/dL (0.2-1.0); Glucose Level 105 mg/dL (74-106); Magnesium 1.9 mg/dL (1.8-2.4); NT PRO-BNP 2261 pg/mL (<450); Potassium 3.3 mmol/L (3.5-5.1); Sodium Level 144 mmol/L (136-145); Troponin (Emerg Dept Use Only) < 0.02 ng/mL (0.0-0.045)
--- NOTE | 2019-06-04 07:56 | ER ---
Nurse's Notes [facility] Name: Rachel Ramsay Age: 83 yrs Sex: Female : 1935 Arrival Date: 06/04/2019 Time: 05:25 Bed 5 Private MD: Diagnosis: Palpitations Presentation: 06/04 05:39 Presenting complaint: Patient states: Reports abnormally high and low blood pressure ea reading and palpitations. States " I think my pacemaker is malfunctioning, I have an appointment to see Dr. Mcpherson at 11 AM for this problem". Transition of care: patient was not received from another setting of care. Onset of symptoms was June 04, 2019. Risk Assessment: Do you want to hurt yourself or someone else? Patient reports no desire to harm self or others. Initial Sepsis Screen: Does the patient meet any 2 criteria? HR > 90 bpm. Does the patient have a suspected source of infection? No. Patient's initial sepsis screen is negative. Care prior to arrival: None. 05:39 Method Of Arrival: Wheelchair ea 05:39 Acuity: BRANDI 3 ea Triage Assessment: 05:43 General: Appears in no apparent distress. Behavior is appropriate for age. Pain: Denies ea pain. Cardiovascular: Patient's skin is warm and dry. Historical: - Allergies: 05:49 "histamines"; ea 05:49 Betadine; ea - Home Meds: 05:49 amitriptyline 10 mg Oral tab 1 tab daily [Active]; Carafate 100 mg/mL Oral susp 10 mL 4 ea times per day [Active]; diazepam 2 mg Oral tab 2 tabs [Active]; Eliquis 2.5 mg oral tab 1 tab 2 times per day [Active]; levothyroxine 25 mcg tab 1 tab once daily [Active]; paroxetine HCl 10 mg oral tab 1 tab once daily [Active]; pravastatin 40 mg oral tab 1 tab once daily [Active]; ropinirole 0.5 mg oral tab 1 tab 3 times per day [Active]; sotalol 120 mg Oral tab 1 tab 2 times per day [Active]; - PMHx: 05:49 chronic diarrhea; colon cancer; gastrointentional mucositis; hysterectomy; Pacemaker; ea uterine cancer; - Immunization history:: Adult Immunizations up to date. - Coronavirus screen:: The patient has NOT traveled to [place] in the past 14 days. - Social history:: Smoking status: Patient denies any tobacco usage or history of. - Ebola Screening: : No symptoms or risks identified at this time. Screenin:42 Abuse screen: Denies threats or abuse. Nutritional screening: No deficits noted. ea Tuberculosis screening: No symptoms or risk factors identified. Fall Risk None identified. Assessment: 05:44 General: Appears in no apparent distress. Behavior is appropriate for age. Pain: Denies ea pain. Neuro: Level of Consciousness is awake, alert, obeys commands. Cardiovascular: Patient's skin is warm and dry. Cardiovascular: Parent/caregiver reports patient has had palpitations. Respiratory: Airway is patent Respiratory effort is even, unlabored, Respiratory pattern is regular, symmetrical. Derm: Skin is pink, warm \\T\\ dry. 07:00 Reassessment: RECD REPORT FROM LATANYA BARBER. 83YO WF P/W IRREGULAR PULSE AND HTN. H/O HTN bp AND PACEMAKER. ALL CURRENT ORDERS COMPLETE. 08:00 Reassessment: ADMIT IN PROCESS. PT HR REMAINS IRREGULAR. bp Vital Signs: 05:42 BP 142 / 103; Pulse 90; Resp 18; Temp 98; Pulse Ox 99% ; Weight 64.41 kg; Height 5 ft. ea 2 in. (157.48 cm); Pain 0/10; 05:57 BP 147 / 90; Pulse 133; Resp 18; Pulse Ox 100% ; ea 07:00 BP 116 / 67; Pulse 90; Resp 12; Pulse Ox 99% ; bp 09:00 BP 101 / 59; Pulse 101; Resp 18; Temp 98; Pulse Ox 98% ; bp 05:42 Body Mass Index 25.97 (64.41 kg, 157.48 cm) ea ED Course: 05:25 Patient arrived in ED. ds1 05:42 Triage completed. ea 05:43 Patient has correct armband on for positive identification. Placed in gown. Bed in low ea position. Call light in reach. Side rails up X2. Adult w/ patient. sustainability purchasing agent on. Pulse ox on. NIBP on. 05:43 Arm band placed on right wrist. Patient placed in an exam room, on a stretcher, on ea pulse oximetry. 05:43 Patient maintains SpO2 saturation greater than 95% on room air. ea 05:43 EKG done, by ED staff, reviewed by Bradley Malave MD. ds4 05:50 Inserted saline lock: 22 gauge in left antecubital area, using aseptic technique. ea ,using aseptic technique. Per Kota Harding RN Blood collected. 05:55 Troponin (emerg Dept Use Only) Sent. ds4 05:55 Basic Metabolic Panel Sent. ds4 05:55 CBC with Diff Sent. ds4 05:55 LFT's Sent. ds4 05:55 PT-INR Sent. ds4 05:55 Magnesium Sent. ds4 05:55 NT PRO-BNP Sent. ds4 05:59 Armida Maldonado FNP-C is PHCP. kb 05:59 Bradley Malave MD is Attending Physician. kb 07:16 Woodrow Jay, RN is Primary Nurse. bp 07:55 Jamie Ricketts DO is Hospitalizing Provider. kb 09:56 No provider procedures requiring assistance completed. Patient admitted, IV remains in bp place. Administered Medications: 06:26 Drug: NS 0.9% 500 ml Route: IV; Rate: bolus; Site: left antecubital; ea 09:58 Follow up: IV Status: Completed infusion; IV Intake: 500ml bp 08:15 Drug: Potassium Chloride 20 mEq Route: PO; bp 09:58 Follow up: Response: No adverse reaction bp Intake: 09:58 IV: 500ml; Total: 500ml. bp Outcome: 07:55 Decision to Hospitalize by Provider. kb 09:55 Admitted to Tele accompanied by tech, via wheelchair, room 207, with chart, Report bp called to DEUCE BARBER 09:55 Condition: stable 09:55 Instructed on the need for admit. 10:19 Patient left the ED. iw Signatures: Armida Maldonado FNP-C FNP-Adeola Murguia ds1 Cece Bolton, RN ELISABETH iw Hector Shipley ds4 Latanya Garcia RN RN ea Peltier, Brian, RN RN bp
--- NOTE | 2019-06-04 07:57 | EDPHYS ---
Physician Documentation [facility] Name: Rachel Ramsay Age: 83 yrs Sex: Female : 1935 Arrival Date: 06/04/2019 Time: 05:25 Bed 5 Private MD: ED Physician Bradley Malave HPI: 06/04 06:14 This 83 yrs old Female presents to ER via Wheelchair with complaints of kb Irregular Pulse, High Blood Pressure. 06:14 The patient presents with a history of irregular heart beat. Context: The symptoms kb occur at rest. Onset: The symptoms/episode began/occurred have been going on for a long time, but "got bad" this week. Palpitations on and off all day yesterday and through the night. Duration: The patient or guardian reports multiple episodes, with no pattern. Modifying factors: The symptoms are aggravated by nothing. The symptoms are alleviated by nothing. Associated signs and symptoms: Pertinent negatives: chest pain, lightheadedness, SOB, syncope, near-syncope. Severity of symptoms: At their worst the symptoms were moderate in the emergency department the symptoms are unchanged. The patient has experienced similar episodes in the past. The patient has not recently seen a physician. Pt reports she came in for palpitations that have been intermittent since yesterday morning. States she has had this multiple times in the past. states "the longest the palps have lasted is 3 hours, but they have been on and off all day yesterday and last night this time." Has appt for follow up tomorrow at [address] Mcpherson. . Historical: - Allergies: 05:49 "histamines"; ea 05:49 Betadine; ea - Home Meds: 05:49 amitriptyline 10 mg Oral tab 1 tab daily [Active]; Carafate 100 mg/mL Oral susp 10 mL 4 ea times per day [Active]; diazepam 2 mg Oral tab 2 tabs [Active]; Eliquis 2.5 mg oral tab 1 tab 2 times per day [Active]; levothyroxine 25 mcg tab 1 tab once daily [Active]; paroxetine HCl 10 mg oral tab 1 tab once daily [Active]; pravastatin 40 mg oral tab 1 tab once daily [Active]; ropinirole 0.5 mg oral tab 1 tab 3 times per day [Active]; sotalol 120 mg Oral tab 1 tab 2 times per day [Active]; - PMHx: 05:49 chronic diarrhea; colon cancer; gastrointentional mucositis; hysterectomy; Pacemaker; ea uterine cancer; - Immunization history:: Adult Immunizations up to date. - Coronavirus screen:: The patient has NOT traveled to [place] in the past 14 days. - Social history:: Smoking status: Patient denies any tobacco usage or history of. - Ebola Screening: : No symptoms or risks identified at this time. ROS: 06:11 Constitutional: Negative for fever, chills, and weight loss, ENT: Negative for injury, kb pain, and discharge, Neck: Negative for injury, pain, and swelling, Respiratory: Negative for shortness of breath, cough, wheezing, and pleuritic chest pain, Abdomen/GI: Negative for abdominal pain, nausea, vomiting, diarrhea, and constipation, Back: Negative for injury and pain, : Negative for injury, bleeding, discharge, and swelling, MS/Extremity: Negative for injury and deformity, Skin: Negative for injury, rash, and discoloration, Neuro: Negative for headache, weakness, numbness, tingling, and seizure. 06:11 Cardiovascular: Positive for palpitations. Exam: 06:11 Constitutional: This is a well developed, well nourished patient who is awake, alert, kb and in no acute distress. Head/Face: Normocephalic, atraumatic. ENT: Nares patent. No nasal discharge, no septal abnormalities noted. Tympanic membranes are normal and external auditory canals are clear. Oropharynx with no redness, swelling, or masses, exudates, or evidence of obstruction, uvula midline. Mucous membranes moist. Neck: Trachea midline, no thyromegaly or masses palpated, and no cervical lymphadenopathy. Supple, full range of motion without nuchal rigidity, or vertebral point tenderness. No Meningismus. Chest/axilla: Normal chest wall appearance and motion. Nontender with no deformity. No lesions are appreciated. Respiratory: Lungs have equal breath sounds bilaterally, clear to auscultation and percussion. No rales, rhonchi or wheezes noted. No increased work of breathing, no retractions or nasal flaring. Abdomen/GI: Soft, non-tender, with normal bowel sounds. No distension or tympany. No guarding or rebound. No evidence of tenderness throughout. Back: No spinal tenderness. No costovertebral tenderness. Full range of motion. Skin: Warm, dry with normal turgor. Normal color with no rashes, no lesions, and no evidence of cellulitis. MS/ Extremity: Pulses equal, no cyanosis. Neurovascular intact. Full, normal range of motion. Neuro: Awake and alert, GCS 15, oriented to person, place, time, and situation. Cranial nerves II-XII grossly intact. Motor strength 5/5 in all extremities. Sensory grossly intact. Cerebellar exam normal. Normal gait. 06:11 Cardiovascular: Rate: tachycardic, Rhythm: regular, Pulses: no pulse deficits are appreciated. Vital Signs: 05:42 BP 142 / 103; Pulse 90; Resp 18; Temp 98; Pulse Ox 99% ; Weight 64.41 kg; Height 5 ft. ea 2 in. (157.48 cm); Pain 0/10; 05:57 BP 147 / 90; Pulse 133; Resp 18; Pulse Ox 100% ; ea 07:00 BP 116 / 67; Pulse 90; Resp 12; Pulse Ox 99% ; bp 09:00 BP 101 / 59; Pulse 101; Resp 18; Temp 98; Pulse Ox 98% ; bp 05:42 Body Mass Index 25.97 (64.41 kg, 157.48 cm) ea MDM: 05:59 Patient medically screened. kb 06:10 Data reviewed: vital signs, nurses notes. Data interpreted: Pulse oximetry: on room air kb is 100 %. Interpretation: normal. 07:55 Counseling: I had a detailed discussion with the patient and/or guardian regarding: the kb historical points, exam findings, and any diagnostic results supporting the discharge/admit diagnosis, lab results, radiology results, the need for further work-up and treatment in the hospital. Physician consultation: Jamie Ricketts DO was contacted at 07:55, regarding admission, to the telemetry unit. patient's condition, and will see patient in ED, shortly. 02 05:38 Order name: Basic Metabolic Panel 06/04 05:38 Order name: CBC with Diff 06/04 05:38 Order name: LFT's 06/04 05:38 Order name: Magnesium 06/04 05:38 Order name: NT PRO-BNP 06/04 05:38 Order name: PT-INR 06/04 05:38 Order name: Troponin (emerg Dept Use Only) 06/04 05:52 Order name: Glucose, Ancillary Testing; Complete Time: 06:08 EDMS 06/04 06:11 Order name: CBC with Automated Diff; Complete Time: 06:23 EDMS 06/04 06:12 Order name: Protime (+INR); Complete Time: 06:23 EDMS 06/04 06:34 Order name: Basic Metabolic Panel; Complete Time: 06:50 EDMS 06/04 06:34 Order name: Liver (Hepatic) Function; Complete Time: 06:50 EDMS 06/04 06:35 Order name: Troponin (Emerg Dept Use Only); Complete Time: 06:50 EDMS 06/04 06:35 Order name: NT PRO-BNP; Complete Time: 06:50 EDMS 06/04 05:38 Order name: XRAY Chest (1 view) 06/04 05:38 Order name: EKG; Complete Time: 05:40 06/04 05:38 Order name: Cardiac monitoring; Complete Time: 05:43 06/04 05:38 Order name: EKG - Nurse/Tech; Complete Time: 05:43 06/04 05:38 Order name: IV Saline Lock; Complete Time: 05:51 06/04 05:38 Order name: Labs collected and sent; Complete Time: 05:51 06/04 05:38 Order name: O2 Per Protocol; Complete Time: 05:43 4 06/04 05:38 Order name: O2 Sat Monitoring; Complete Time: 05:51 06/04 06:35 Order name: Magnesium; Complete Time: 06:50 EDMS 06/04 10:06 Order name: RAD; Complete Time: 10:06 EDMS Administered Medications: 06:26 Drug: NS 0.9% 500 ml Route: IV; Rate: bolus; Site: left antecubital; ea 09:58 Follow up: IV Status: Completed infusion; IV Intake: 500ml bp 08:15 Drug: Potassium Chloride 20 mEq Route: PO; bp 09:58 Follow up: Response: No adverse reaction bp Disposition: 06/05 08:23 Co-signature as Attending Physician, Bradley Malave MD I agree with the assessment and plan of care. Disposition: 06/04/19 07:55 Hospitalization ordered by Jamie Ricketts for Inpatient Admission. Preliminary diagnosis is Palpitations. - Bed requested for Telemetry/MedSurg (Inpatient). - Status is Inpatient Admission. iw - Condition is Stable. - Problem is new. - Symptoms are unchanged. Signatures: Dispatcher [employer] EDMS Armida Maldonado, PRECISION LENS POLISHER-C PRECISION LENS POLISHER-Ckb RafaelTina hines Cece Pacheco, RN RN iw Latanya Garcia, Woodrow Hernandez RN, ea, Bradley Galvan RN, MD MD tw4 Corrections: (The following items were deleted from the chart) 06/04 09:14 07:55 Hospitalization Ordered by Jamie Ricketts DO for Inpatient Admission. Preliminary bd diagnosis is Palpitations. Bed requested for Telemetry/MedSurg (Inpatient). Status is Inpatient Admission. Condition is Stable. Problem is new. Symptoms are unchanged. kb 10:19 09:14 06/04/2019 07:55 Hospitalization Ordered by Jamie Ricketts DO for Inpatient iw Admission. Preliminary diagnosis is Palpitations. Bed requested for Telemetry/MedSurg (Inpatient). Status is Inpatient Admission. Condition is Stable. Problem is new. Symptoms are unchanged. bd
[2019-06-04] MEDS ORDERED: POTASSIUM CL SA 10 MEQ TAB PO ONE (08:21)
--- NOTE | 2019-06-04 08:36 | P.HP ---
Certification for Inpatient Patient admitted to: Observation With expected LOS: <2 Midnights Patient will require the following post-hospital care: None Practitioner: I am a practitioner with admitting privileges, knowledge of patient current condition, hospital course, and medical plan of care. Services: Services provided to patient in accordance with Admission requirements found in Title 42 Section 412.3 of the Code of Federal Regulations Patient History Date of Service: 06/04/19 Primary Care Provider: Dr. Adan Turner; Cardiology-Dr. Mcpherson Reason for admission: Palpitations History of Present Illness: 83 yo CF with history of pacemaker/Atrial fibrillation on chronic anticoagulation, hypothyroidism, and hyperlipidemia. She presented with palpitations over the last 3 days. She has been taking her mediation-Betapace and Eliquis. She she was to see her stonemason apprentice today to further evaluate the palpitations. She also reports some nasal drainage with dizziness. Other symptoms include fever, chills, headaches. Does report that her son was recently sick with a viral illness. She has had poor oral intake as well. Patient came to the ER for further evaluation. In the ER patient evaluated. Patient had heart rate in the 120s to 130s in the ER with atrial flutter. Patient was given IV fluid bolus with improvement. Rate now all better controlled. White count 5.9, hemoglobin 14. Platelet count 243. Lymphocytes elevated at 46. Sodium 144, potassium 3.3, BUN of 21, creatinine 0.9 with a GFR 55. Glucose 105. Troponin unremarkable. BNP 2261. Chest x-ray unremarkable. Influenza test/strep test pending at this time. Patient was admitted for further evaluation and observation. When I saw the patient in the ER, she appeared stable. She did reported dry mouth and poor oral intake. Some mild headache, chills, left-sided blurry vision noted. Allergies No Known Allergies Allergy (Verified 04/19/19 22:35) Home medications list reviewed: Yes Home Medications: Acetaminophen [Pain Relief Extra Strength] 500 mg PO BID PRN 04/19/19 Amitriptyline HCl 10 mg PO BEDTIME 04/19/19 Apixaban [Eliquis *] 2.5 mg PO BID 04/19/19 Cholecalciferol (Vitamin D3) [Vitamin D3] 1 cap PO BID 04/19/19 Levothyroxine Sodium [Synthroid] 50 mcg PO DAILY 04/19/19 Omeprazole Magnesium [Prilosec Otc] 20 mg PO DAILY PRN 04/19/19 PARoxetine HCl [Paxil*] 10 mg PO [id number] 04/19/19 Pravastatin Sodium [Pravachol] 40 mg PO BEDTIME 04/19/19 Ropinirole HCl [Requip*] 0.5 mg PO TID 04/19/19 Sotalol HCl [Betapace*] 120 mg PO BID 04/19/19 diazePAM [Valium*] 2 mg PO BID 04/19/19 dilTIAZem HCL [Diltiazem HCl] 90 mg PO BID 04/19/19 - Past Medical/Surgical History Diabetic: No -: History of colon cancer -: 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. She is a . - Family History Family History: Reviewed- Non-Contributory - Social History Smoking Status: Never smoker Alcohol use: No CD- Drugs: No Caffeine use: No Place of Residence: Senior Living ([facility]) Review of Systems General: Fever, Chills, Malaise, As per HPI Eyes: Unremarkable ENT: Nose Discharge, Nose Congestion, As per HPI Respiratory: As per HPI Cardiovascular: Light Headedness, As per HPI Gastrointestinal: Unremarkable Genitourinary: Unremarkable Musculoskeletal: Unremarkable Integumentary: Unremarkable Neurological: As per HPI Lymphatics: Unremarkable Physical Examination - Physical Exam General: Alert, In no apparent distress, Oriented x3, Cooperative HEENT: Atraumatic, Normocephalic, Other (Dry mucous membranes) Neck: Supple Respiratory: Clear to auscultation bilaterally, Normal air movement Cardiovascular: Irregular heart rate/rhythm (AFib rate controlled) Gastrointestinal: Normal bowel sounds, Soft and benign, Non-distended, No tenderness, No masses, No rebound, No guarding Musculoskeletal: No erythema, No tenderness, No warmth Integumentary: No tenderness/swelling, No erythema, No warmth, No cyanosis Neurological: Normal speech, Normal strength at 5/5 x4 extr, Normal tone, Normal affect - Studies Laboratory Data (last 24 hrs) 06/04/19 05:49: PT 13.1 H, INR 1.11 06/04/19 05:49: WBC 5.9, Hgb 14.3, Hct 41.9, Plt Count 243 06/04/19 05:49: Sodium 144, Potassium 3.3 L, BUN 21 H, Creatinine 0.97, Glucose 105, Magnesium 1.9, Total Bilirubin 0.4, AST 11 L, ALT 9 L, Alkaline Phosphatase 57 Assessment and Plan - Plan Impression: Palpitations with history of atrial fibrillation on chronic anti coagulation therapy and pacemaker Dehydration/acute renal injury likely related to acute viral syndrome suspect influenza Hyperlipidemia Hypothyroidism Depression Restless leg syndrome Chronic diarrhea related to radiation therapy History of colon cancer Plan: Palpitations with history of atrial fibrillation on chronic anti coagulation therapy and pacemaker: Patient we admitted for further evaluation and observation. Patient with palpitations likely related to dehydration/acute renal injury. Suspect acute viral syndrome. Will need to evaluate for influenza. Son recently sick with viral illness. Will provide IV fluid bolus. Will continue with IV fluids. Will start Tamiflu if influenza test positive. Cardiology consulted to further evaluate. Will have pacemaker interrogated. Will monitor telemetry and cardiac enzymes. Will restart home medication including Betapace, Eliquis, pravastatin and levothyroxine. Will check tsh/ free T4. Anticipate improvement over the next 24 hr. Await further recommendations from cardiology. Dehydration/acute renal injury likely related to acute viral syndrome suspect influenza: Will provide IV fluid bolus. Will continue with maintenance IV fluids with replacement of electrolytes. Will test for influenza and strep. If abnormal patient will require Tamiflu. Hyperlipidemia: Restart home medication of pravastatin 40 mg daily. Hypothyroidism: Will check tsh and free T4 due to palpitations. Will continue with home medication of levothyroxine 25 mcg daily. Depression: Continue home medication of Paxil 10 mg daily. Restless leg syndrome: Obtain and restart home medication. 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 History of colon cancer: This appears stable at this time. Discharge Plan: Other (Assisted living facility-[facility]) Plan to discharge in: 24 Hours - Advance Directives Does patient have a Living Will: Yes Does patient have a Durable POA for Healthcare: Yes - Code Status/Comfort Care Code Status Assessed: Yes (Patient is full code) Time Spent Managing Pts Care (In Minutes): 55
--- NOTE | 2019-06-04 08:51 | EKG ---
Test Date: 2019-06-04 Test Time: 07:09:43 Systems Requirements Planner: CHRISTOPHER MEASUREMENT RESULTS: Intervals: Rate: 87 KS: 96 QRSD: 152 QT: 448 QTc: 539 [place]: P: 94 KS: 96 QRS: -87 T: 85 INTERPRETIVE STATEMENTS: Rhythm consistent with DDD pacing with sinus and Atrial-sensed ventricular-paced rhythm and AV paced rhythm and both atrial and ventricular sensed rhythms Right atrial enlargement Abnormal ECG Compared to ECG 06/04/2019 05:41:42 no significant change from previous ECG Electronically Signed On 06-04-19 08:51:19 VISUAL MERCHANDISE MANAGER by Alex Mcpherson
--- NOTE | 2019-06-04 08:53 | EKG ---
Test Date: 2019-06-04 Test Time: 05:41:42 Design Supervisor: LÓPEZ MEASUREMENT RESULTS: Intervals: Rate: 104 AR: 200 QRSD: 84 QT: 364 QTc: 478 [place]: P: 94 AR: 200 QRS: 67 T: 66 INTERPRETIVE STATEMENTS: Rhythm consistent with DDD pacing with atrial paced ventricular sensed rhythm and premature atrial complexes Abnormal ECG Compared to ECG 04/19/2019 17:32:12 Atrial premature complex(es) now present RSR' in V1 or V2 now present Possible ischemia now present Sinus rhythm no longer present ST (T wave) deviation still present Electronically Signed On 06-04-19 08:52:19 WORKSITE WELLNESS PRACTITIONER by Alex Mcpherson
--- NOTE | 2019-06-04 10:03 | RAD REPORT ---
EXAM DESCRIPTION: RAD - Chest Single View - 06/04/2019 6:06 am CLINICAL HISTORY: ..Palpitations, hypertension COMPARISON: Chest Single View dated 04/19/2019 TECHNIQUE: AP portable chest image was obtained 06/04/2019 6:06 am . FINDINGS: No focal mass or consolidation. Interstitial markings are mildly increased over the compar saige. Vasculature is similar to comparison. No cardiomegaly. Pacemaker remains in place. No measurabl e pleural effusion and no pneumothorax. No acute bony abnormality seen. No acute aortic findings susp ected. IMPRESSION: No focal mass or consolidation. Interstitial pattern is fractionally increased and could represent very minimal edema or infiltrate.
[2019-06-04] MEDS ORDERED: NA CHLORIDE 0.9% 500 ML IV ONE (10:33)
[2019-06-04] MEDS ORDERED: OSELTAMIVIR 75 MG CAP PO SCH (10:33)
[2019-06-04] MEDS ORDERED: ONDANSETRON 4 MG/2 ML VIAL IV PRN (10:33)
[2019-06-04 11:17] VITALS: BMI 25.4
[2019-06-04] MEDS: APIXABAN 2.5 MG TABLET PO SCH ×2 (11:53→21:40)
[2019-06-04] MEDS: NACHLORIDE 0.45% 1,000 ML IV SCH ×2 (11:53→21:56)
[2019-06-04] MEDS: PARoxetine HCL 10 MG TAB PO SCH (11:53)
[2019-06-04] MEDS: ACETAMINOPHEN 500 MG TAB PO PRN ×2 (11:54→21:54)
[2019-06-04] MEDS: FLUTICASONE 50MCG NASAL SPRAY NAS SCH ×2 (12:29→21:39)
[2019-06-04 12:40] LABS: Thyroid Stimulating Hormone 1.84 uIU/mL (0.360-3.740)
[2019-06-04 14:52] LABS: Creatine Phosphokinase 34 U/L (26-192); Troponin I < 0.02 ng/mL (0.0-0.045)
[2019-06-04] MEDS: SOTALOL HCL 80 MG TAB PO SCH (18:16)
[2019-06-04] MEDS ORDERED: ATORVASTATIN 10 MG TAB PO SCH (21:00)
[2019-06-04] MEDS ORDERED: HOME MED 1 EA UNK (Pravastatin Sodium [Pravachol] 40 MG) PO SCH (21:00)
[2019-06-04] MEDS ORDERED: DILTIAZEM HCL 90 MG PO SCH (21:00)
[2019-06-04] MEDS: AMITRIPTYLINE 10 MG TAB PO SCH (21:40)
[2019-06-04] MEDS: ROPINIROLE HCL 0.25 MG TAB PO SCH (21:41)
[2019-06-04] MEDS: DILTIAZEM HCL 60 MG TAB PO SCH (21:41)
[2019-06-04] MEDS: ATORVASTATIN 10 MG TAB PO SCH (21:42)
[2019-06-04] MEDS: VITAMIN D 1000 UNIT TAB PO SCH (21:43)
[2019-06-04 21:45] LABS: CKMB Creatine Kinase MB 1.3 ng/mL (0.3-3.6); Creatine Phosphokinase 38 U/L (26-192); Troponin I < 0.02 ng/mL (0.0-0.045)
[2019-06-05] MEDS: LEVOTHYROXINE SOD 0.025 MG TAB PO SCH (05:42)
[2019-06-05] MEDS: SOTALOL HCL 80 MG TAB PO SCH ×2 (05:46→15:11)
[2019-06-05 05:55] LABS: Absolute Lymphocytes (CBC) 2.6 K/uL (0.7-4.9); Basophils % 0.2 % (0-1.3); Hematocrit 37.5 % (36.0-45.0); MPV 8.1 fL (7.6-11.3); RBC Red Blood Cell Count 4.06 M/uL (3.86-4.86)
[2019-06-05 06:09] LABS: Potassium 3.4 mmol/L (3.5-5.1)
[2019-06-05 06:25] LABS: Urine Appearance CLEAR; Urine Bilirubin NEGATIVE (NEG); Urine Blood NEGATIVE (NEG); Urine Color YELLOW; Urine Glucose NEGATIVE (NEG); Urine Protein NEGATIVE (NEG); Urine Specific Gravity <=1.005 (1.005-1.030); Urine Urobilinogen 0.2 mg/dL (0.2-1.0)
[2019-06-05] MEDS ORDERED: LEVOTHYROXINE SOD 0.025 MG TAB PO SCH (06:30)
[2019-06-05 06:45] LABS: Urine Microscopic Reflex NO UMIC
--- NOTE | 2019-06-05 07:25 | RAD REPORT ---
EXAM DESCRIPTION: RAD - Chest Pa And Lat (2 Views) - 06/05/2019 6:50 am CLINICAL HISTORY: Follow up viral illness Chest pain. COMPARISON: Chest Single View dated 06/04/2019; Chest Single View dated 04/19/2019 FINDINGS: The lungs are emphysematous but clear. The heart is upper limit of normal in size with a d ual lead pacer device present. No displaced fractures. IMPRESSION: Mild COPD.
[2019-06-05 08:15] LABS: Anisocytosis 1+; Blood Morphology Comment NOTED (NOT SEEN); Platelet Estimate ADEQ
--- NOTE | 2019-06-05 08:40 | P.DS ---
Admission Date: 06/04/19 Discharge Date: 06/05/19 Primary Care Provider: Dr. Adan Turner; Cardiology-Dr. Mcpherson Disposition: TRANSFER TO [facility] Discharge Condition: GOOD Reason for Admission: Palpitations Consultations: Cardiology-Dr. 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 The heart is upper limit of normal in size with a dual lead pacer device present. No displaced fractures. IMPRESSION: Mild COPD. 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 She presented with palpitations over the last 3 days. She has been taking her mediation-Betapace and Eliquis. She she was to see her chute feeder today to further evaluate the palpitations. She also reports some nasal drainage with dizziness. Other symptoms include fever, chills, headaches. Does report that her son was recently sick with a viral illness. She has had poor oral intake as well. Patient came to the ER for further evaluation. In the ER patient evaluated. Patient had heart rate in the 120s to 130s in the ER with atrial flutter. Patient was given IV fluid bolus with improvement. Rate now all better controlled. White count 5.9, hemoglobin 14. Platelet count 243. Lymphocytes elevated at 46. Sodium 144, potassium 3.3, BUN of 21, creatinine 0.9 with a GFR 55. Glucose 105. Troponin unremarkable. BNP 2261. Chest x-ray unremarkable. Influenza test/strep test pending at this time. Patient was admitted for further evaluation and observation. When I saw the patient in the ER, she appeared stable. She did reported dry mouth and poor oral intake. Some mild headache, chills, left-sided blurry vision noted. Hospital Course: Patient presented were Palpitations with history of atrial fibrillation on chronic anti coagulation therapy. Patient also has pacemaker. Patient had accelerated heart rate upon admission. Patient found to have acute viral syndrome with acute renal injury and dehydration. Strep test negative. Influenza test negative. This was the likely cause of her accelerated AFib. Chest x-ray showed no evidence of pneumonia. Cardiology was consulted. Cardiology recommended to increase Betapace for better control of her atrial fibrillation. Diltiazem was discontinued. Pacemaker was interrogated. No abnormality noted. With the change in her medication patient now paced and rate better controlled. At discharge, patient without any significant palpitation, shortness of breath or chest pain. Pacemaker interrogated. No abnormality noted. Patient remains stable on current changes. At discharge patient will continue with increase dose of Betapace 160 mg 1 pill twice daily and discontinue diltiazem. Patient will continue with chronic anti coagulation therapy Eliquis 2.5 mg 1 pill twice daily. For her acute viral syndrome will recommend to increase oral intake. Patient may take Tessalon Perles for cough and Mucinex for congestion. Case discussed with son on plan of care. Patient will return to assisted living facility. Patient with hyperlipidemia. At discharge she will continue with pravastatin 40 mg daily. Patient with hypothyroidism. Tsh and free T4 within normal range. Patient will continue with levothyroxine 50 mcg daily. Patient with depression. At discharge she will continue with her Paxil 10 mg daily, Elavil 10 mg at bedtime, and Valium 1 mg twice daily as needed for agitation. Patient with restless leg syndrome. At discharge she will continue with her medication Requip 0.5 mg 3 times a day. Patient with chronic diarrhea related to radiation therapy and history of colon cancer. This appears stable at this time. Patient with chronic sinusitis with deviated septum. Patient may continue with Flonase 1 spray per nostril twice daily. Will recommend ENT evaluation as an outpatient to further evaluate. Patient with GERD. At discharge she will continue with Prilosec 20 mg daily. Vital Signs/Physical Exam: Temp Pulse Resp BP Pulse Ox 98 F 64 16 110/56 L 98 06/05/19 05:49 06/05/19 05:49 06/05/19 05:49 06/05/19 05:49 06/05/19 05:49 General: Alert, In no apparent distress, Oriented x3, Cooperative HEENT: Atraumatic, Other (Deviated septum) Neck: Supple Respiratory: Clear to auscultation bilaterally, Normal air movement Cardiovascular: Irregular heart rate/rhythm (Rate controlled) Gastrointestinal: Normal bowel sounds, Soft and benign, Non-distended, No tenderness, No masses, No rebound, No guarding Musculoskeletal: No erythema, No tenderness, No warmth Integumentary: No tenderness/swelling, No erythema, No warmth, No cyanosis Neurological: Normal speech, Normal strength at 5/5 x4 extr, Normal tone, Normal affect Laboratory Data at Discharge: WBC 4.5 K/uL (4.3-10.9) D 06/05/19 05:21 Hgb 12.7 g/dL (12.0-15.0) 06/05/19 05:21 Hct 37.5 % (36.0-45.0) 06/05/19 05:21 Plt Count 201 K/uL (152-406) 06/05/19 05:21 PT 13.1 SECONDS (9.5-12.5) H 06/04/19 05:49 INR 1.11 06/04/19 05:49 Sodium 145 mmol/L (136-145) 06/05/19 05:21 Potassium 3.4 mmol/L (3.5-5.1) L 06/05/19 05:21 BUN 13 mg/dL (7-18) 06/05/19 05:21 Creatinine 0.68 mg/dL (0.55-1.3) 06/05/19 05:21 Glucose 87 mg/dL (74-106) 06/05/19 05:21 Magnesium 2.0 mg/dL (1.8-2.4) 06/05/19 05:21 Total Bilirubin 0.4 mg/dL (0.2-1.0) 06/04/19 05:49 AST 11 U/L (15-37) L 06/04/19 05:49 ALT 9 U/L (12-78) L 06/04/19 05:49 Alkaline Phosphatase 57 U/L (45-117) 06/04/19 05:49 Troponin I < 0.02 ng/mL (0.0-0.045) 06/04/19 20:50 Home Medications: Acetaminophen [Pain Relief Extra Strength] 500 mg PO BID PRN 04/19/19 Amitriptyline HCl 10 mg PO BEDTIME 04/19/19 Apixaban [Eliquis *] 2.5 mg PO BID 04/19/19 Cholecalciferol (Vitamin D3) [Vitamin D3] 1 cap PO BID 04/19/19 Levothyroxine Sodium [Synthroid] 50 mcg PO [id number] 04/19/19 Omeprazole Magnesium [Prilosec Otc] 20 mg PO DAILY PRN 04/19/19 PARoxetine HCl [Paxil*] 10 mg PO [id number] 04/19/19 Pravastatin Sodium [Pravachol] 40 mg PO BEDTIME 04/19/19 Ropinirole HCl [Requip*] 0.5 mg PO TID 04/19/19 diazePAM [Valium*] 1 mg PO BID 04/19/19 Benzonatate [Tessalon Perle] 100 mg PO TID PRN #10 cap 06/05/19 Fluticasone [Flonase 50MCG Nasal [place]*] 1 sprays CIERRA BID #1 btl 06/05/19 Guaifenesin [Mucinex] 600 mg PO BID PRN #10 tab.er.12h 06/05/19 Sotalol HCl [Betapace*] 160 mg PO BID #120 tab 06/05/19 New Medications: Benzonatate [Tessalon Perle] 100 mg PO TID PRN #10 cap PRN Reason: Cough Fluticasone [Flonase 50MCG Nasal [place]*] 1 sprays CIERRA BID #1 btl Guaifenesin [Mucinex] 600 mg PO BID PRN #10 tab.er.12h PRN Reason: Cough Sotalol HCl [Betapace*] 160 mg PO BID #120 tab Patient Discharge Instructions: 1. Patient will return to assisted living facility with home health and physical therapy at discharge. Recommend follow up with PCP in 1-2 weeks to follow up this hospitalization. 2. Patient presented with Palpitations with history of atrial fibrillation on chronic anti coagulation therapy. Patient also has pacemaker. Patient had accelerated heart rate upon admission. Patient found to have acute viral syndrome with acute renal injury and dehydration. Strep test negative. Influenza test negative. This was the likely cause of her accelerated AFib. Chest x-ray showed no evidence of pneumonia. Cardiology was consulted. Cardiology recommended to increase Betapace for better control of her atrial fibrillation. Diltiazem was discontinued. Pacemaker was interrogated. No abnormality noted. With the change in her medication patient now paced and rate better controlled. At discharge, patient without any significant palpitation, shortness of breath or chest pain. Pacemaker interrogated. No abnormality noted. Patient remains stable on current changes. At discharge patient will continue with increase dose of Betapace 160 mg 1 pill twice daily and discontinue diltiazem. Patient will continue with chronic anti coagulation therapy Eliquis 2.5 mg 1 pill twice daily. For her acute viral syndrome will recommend to increase oral intake. Patient may take Tessalon Perles for cough and Mucinex for congestion. Case discussed with son on plan of care. Patient will return to assisted living facility. 3. Patient with hyperlipidemia. At discharge she will continue with pravastatin 40 mg daily. 4. Patient with hypothyroidism. Tsh and free T4 within normal range. Patient will continue with levothyroxine 50 mcg daily. 5. Patient with depression. At discharge she will continue with her Paxil 10 mg daily, Elavil 10 mg at bedtime, and Valium 1 mg twice daily as needed for agitation. Patient with restless leg syndrome. At discharge she will continue with her medication Requip 0.5 mg 3 times a day. 6. Patient with chronic diarrhea related to radiation therapy and history of colon cancer. This appears stable at this time. 7. Patient with chronic sinusitis with deviated septum. Patient may continue with Flonase 1 spray per nostril twice daily. Will recommend ENT evaluation as an outpatient to further evaluate. 8. Patient with GERD. At discharge she will continue with Prilosec 20 mg daily. Diet: AHA Activity: Fall precautions Time spent managing pt's care (in minutes): 55
[2019-06-05] MEDS: DILTIAZEM HCL 60 MG TAB PO SCH (09:00)
[2019-06-05] MEDS: FLUTICASONE 50MCG NASAL SPRAY NAS SCH ×2 (09:08→20:58)
[2019-06-05] MEDS: VITAMIN D 1000 UNIT TAB PO SCH ×2 (09:09→21:00)
[2019-06-05] MEDS: PARoxetine HCL 10 MG TAB PO SCH (09:09)
[2019-06-05] MEDS: ROPINIROLE HCL 0.25 MG TAB PO SCH ×3 (09:09→20:59)
[2019-06-05] MEDS: APIXABAN 2.5 MG TABLET PO SCH ×2 (09:09→21:00)
[2019-06-05] MEDS: ACETAMINOPHEN 500 MG TAB PO PRN ×2 (10:41→21:11)
[2019-06-05] MEDS ORDERED: POTASSIUM 25 MEQ EFFERV TAB PO ONE (11:00)
--- NOTE | 2019-06-05 11:41 | EKG ---
Test Date: 2019-06-05 Test Time: 09:17:45 Psych Nurse: RINKU MEASUREMENT RESULTS: Intervals: Rate: 94 AR: QRSD: 86 QT: 348 QTc: 435 Wright: P: AR: QRS: 64 T: 44 INTERPRETIVE STATEMENTS: Atrial fibrillation ST & T wave abnormality, consider anterior ischemia or digitalis effect Abnormal ECG Compared to ECG 06/04/2019 07:09:43 ST (T wave) deviation now present Possible ischemia now present AV dual-paced complex(es) or rhythm no longer present Ventricular-paced complex(es) or rhythm no longer present Atrial-sensed ventricular-paced complex(es) or rhythm no longer present Atrial abnormality no longer present Electronically Signed On 06-05-19 11:40:47 SECRETARY TO [employer] COMM[employer]IONERS by Alex Mcpherson
--- NOTE | 2019-06-05 13:10 | CON ---
Identification: An 83-year-old woman. Chief Complaint: Heart irregularity. History Of Present Illness: Mrs. Ramsay is having a lot of premature atrial complexes and now has go ne into atrial fibrillation. She has had atrial fibrillation before. She is on Betapace and Eliquis , but apparently the dose of Betapace is not adequate. She is also on Cardizem. She has had a pacem vanna for many years. Her pacemaker has been interrogated. It is working appropriately, but she has a lot of arrhythmia. She feels better now, but she is actually in atrial fibrillation and her heart rate is about 110. Home Medications: Have been vitamin D3, amitriptyline, Betapace 120 b.i.d., ropinirole, Eliquis 2.5 b.i.d., diltiazem 90 b.i.d., acetaminophen, paroxetine, levothyroxine, pravastatin, omeprazole, and d iazepam. Physical Examination: VITAL SIGNS: She is 5 feet 2 inches, 139 pounds. General: Alert, oriented, pleasant, not in distress. Lungs: Clear. Heart: Irregularly irregular. No murmur. Abdomen: Soft. Extremities: Trace edema. No cyanosis, clubbing. Laboratory Data: Reveals a normal renal function, normal troponins, normal thyroid function. Plan: I believe the patient should have potassium repletion and undergo the increase in the dose of Betapace to 160 b.i.d. SH/MODL Voice ID: [id number] Report ID: [id number]
[2019-06-05] MEDS: DIAZEPAM 2 MG TABLET PO PRN (17:11)
[2019-06-05] MEDS: AMITRIPTYLINE 10 MG TAB PO SCH (20:59)
[2019-06-05] MEDS: ATORVASTATIN 10 MG TAB PO SCH (20:59)
[2019-06-06 05:48] VITALS: O2SAT 93
[2019-06-06] MEDS: SOTALOL HCL 80 MG TAB PO SCH (06:44)
[2019-06-06] MEDS: LEVOTHYROXINE SOD 0.025 MG TAB PO SCH (06:46)
[2019-06-06] MEDS ORDERED: POTASSIUM 25 MEQ EFFERV TAB PO ONE (07:31)
[2019-06-06] MEDS: VITAMIN D 1000 UNIT TAB PO SCH (07:59)
[2019-06-06] MEDS: APIXABAN 2.5 MG TABLET PO SCH (07:59)
[2019-06-06] MEDS: ROPINIROLE HCL 0.25 MG TAB PO SCH (08:00)
[2019-06-06] MEDS: FLUTICASONE 50MCG NASAL SPRAY NAS SCH (08:00)
[2019-06-06] MEDS: PARoxetine HCL 10 MG TAB PO SCH (08:00)
[2019-06-06] MEDS: ACETAMINOPHEN 500 MG TAB PO PRN (08:10)
[2019-06-06] MEDS: DIAZEPAM 2 MG TABLET PO PRN (08:10)
[2019-06-06 09:24] VITALS: BP 131/61; TEMP 98.5
--- NOTE | 2019-06-06 11:56 | PN ---
Date of Progress Note: 06/06/2019 Today, she is back in normal rhythm. I think if she successfully takes her Betapace at the prescribe d dose 160 b.i.d., stops diltiazem. I think she will have very good control of her arrhythmia. She should continue on her Eliquis 2.5 b.i.d. as well. I believe, she is stable enough to be discharged home today. CECILIA/JV Voice ID: [id number] Report ID: [id number]
== END 2019-06-06 09:59 | disposition home health service (06) ==
LOC: ER 05:23 → ERHOLD 08:23 → 2ND 09:56
PROVIDERS: ADMIT Family Medicine; ATTEND Family Medicine
DX: R00.2 Palpitations (principal); I48.91 Unspecified atrial fibrillation; B34.9 Viral infection, unspecified; E86.0 Dehydration; N17.9 Acute kidney failure, unspecified; E78.5 Hyperlipidemia, unspecified; E03.9 Hypothyroidism, unspecified; F32.9 Major depressive disorder, single episode, unspecified; G25.81 Restless legs syndrome; K52.0 Gastroenteritis and colitis due to radiation; J32.9 Chronic sinusitis, unspecified; J34.2 Deviated nasal septum; Z85.038 Personal history of other malignant neoplasm of large intestine; Z95.0 Presence of cardiac pacemaker; Z79.01 Long term (current) use of anticoagulants
CPT/HCPCS: 96361; 93005 ×3; 87040; 87070 ×2; 85025 ×2; 80048 ×2; 36415 ×2; 83735 ×2; 82550 ×2; 87205; 84132; 85610; 82947; 80076; 87081; 84443; 87077; 87186; 81003; 84484 ×3; 82553 ×2; 84439; 83880; 87804 ×2; 71045; 71046; 96360; 99285; J7040; G0378 ×4

== ENCOUNTER 2019-06-15 06:36 | Emergency (ER) | payer MEDICARE ==
--- OUTSIDE RECORDS SUMMARY | 2019-06-15 06:39 | XMS REPORT ---
[...] End Status Dosage System Date Date Amitriptyline [facility] 81079132750 10 Orally Once Active as directed HCl a day Sotalol HCl [facility] 52170213549 120 mg Orally Active 1 tablet every 12 hrs Diltiazem HCl ER [facility] 11919245010 90 MG Orally Active 1 capsule Twice a day Ropinirole HCl NDC 51663285127 0.5 MG Orally Active 1 tablet Three times a day Prolia [facility] 92300975475 60 MG/ML Active 60 mg Subcutaneous every 6 months Diazepam ND 13958206423 2 MG Orally Active 1 tablet as Twice a day PRN needed Heart Palpitations Clobetasol [facility] 14350748681 0.05 % Active 1 application Propionate E Externally Twice a day Sotalol HCl [facility] 71547420861 120 MG Orally Active 1 tablet every [address] [facility] 06828517829 25 MCG Orally Active 1 tablet on Sodium Once a day an empty stomach in the morning Dexilant [facility] 78787107677 60 MG Orally Active 1 capsule Once a day Pravastatin [facility] 03317776696 40 MG Orally Active 1 tablet Sodium Once a day Acetaminophen [facility] 74133540771 500 MG Orally Active 1 capsule as every 6 hrs needed Vitamin D [facility] 26722487895 2000 UNIT Active 1 tablet Orally Once a day Eliquis 2.[address] [facility] 22254833091 2.5 mg by mouth Active one twice daily Paroxetine HCl [facility] 90350130001 10 MG Orally Active 1 tablet in BID the morning Fluticasone [facility] 41547450011 50 MCG/ACT Sept Active 1 spray in Propionate Nasally Once a , each nostril [address] [facility] [address] 1 GM Orally as Sept Active as directed needed [address] [facility] 71204411140 10 MG Orally Active as directed HCl Once a day Results No Known Results Summary Purpose [employer] Submission
--- OUTSIDE RECORDS SUMMARY | 2019-06-15 06:39 | XMS REPORT ---
[...] Medications Results No Known Results Summary Purpose [employer] Submission
--- OUTSIDE RECORDS SUMMARY | 2019-06-15 06:39 | XMS REPORT ---
[...] Start End Date Status Dosage Date Diazepam [facility] 33274797742 2 MG Orally Twice Active 1 tablet a day PRN Heart as needed Palpitations Results No Known Results Summary Purpose eClinicalWorks Submission
--- OUTSIDE RECORDS SUMMARY | 2019-06-15 06:40 | XMS REPORT ---
[...] Medications Results No Known Results Summary Purpose [facility] [employer] Submission
--- OUTSIDE RECORDS SUMMARY | 2019-06-15 06:40 | XMS REPORT ---
[...] Medications Results No Known Results Summary Purpose [employer] Submission
--- OUTSIDE RECORDS SUMMARY | 2019-06-15 06:40 | XMS REPORT ---
[...] Medications Results No Known Results Summary Purpose [facility] Submission
--- OUTSIDE RECORDS SUMMARY | 2019-06-15 06:40 | XMS REPORT ---
[...] Status Dosage System Date Date Paroxetine HCl [facility] 63394276712 10 MG Orally Active 1 tablet in BID the morning Sotalol HCl [facility] 42903630364 120 MG Orally Active 1 tablet every 12 hrs Carafate [facility] 30306140219 1 GM/10ML Active 10 ml on an Orally Twice a empty stomach day Prolia [facility] 22146878291 60 MG/ML Active 60 mg Subcutaneous every 6 months Clobetasol [facility] 55449306502 0.05 % May 15May Active 1 application Propionate Externally 2019 05, Twice a day 2019 Pravastatin [facility] 43402985077 40 MG Orally Active 1 tablet Sodium Once a day Eliquis 2.5 mg [facility] 49410912000 2.5 mg by Active one mouth twice daily Diazepam [facility] 75965726561 2 MG Orally Active 1/2 tablet as Twice a day needed PRN Heart Palpitations Dexilant [facility] 85616224560 60 MG Orally Inactive 1 capsule Once a day Diltiazem HCl ER [facility] 35251522577 90 MG Orally Active 1 capsule Twice a day Omeprazole [facility] 32863162955 40 MG Orally Active 1 capsule 30 Once a day minutes before morning meal Vitamin D [facility] 62734859834 2000 UNIT Active 1 tablet Orally Once a day Glucose [facility] 59[address]71 1 GM Orally as Sept Active as directed needed 2018 Amitriptyline [facility] 15205808434 10 MG Orally Active as directed HCl Once a day Sotalol HCl [facility] 35680181499 120 mg Orally Active 1 tablet every 12 hrs Ropinirole HCl [facility] 45749658798 0.5 MG Orally Active 1 tablet Three times a day Levothyroxine [facility] 20125398383 25 MCG Orally Active 1 tablet on Sodium Once a day an empty stomach in the morning Results No Known Results Summary Purpose eClinicalWorks Submission
[2019-06-15] MEDS ORDERED: FENTANYL CITR 100 MCG/2 ML ONE (07:13)
[2019-06-15] MEDS ORDERED: ONDANSETRON 4 MG/2 ML VIAL ONE (07:15)
[2019-06-15] MEDS ORDERED: dexAMETHasone 4 MG/ML VIAL ONE (07:15)
[2019-06-15 07:20] LABS: Basophils % 0.4 % (0-1.3); Hematocrit 39.5 % (36.0-45.0); Lymphocytes % 41.3 % (15.3-44.8); MPV 7.8 fL (7.6-11.3); RBC Red Blood Cell Count 4.33 M/uL (3.86-4.86)
[2019-06-15 07:41] LABS: AST/SGOT 10 U/L (15-37); Albumin 3.9 g/dL (3.4-5.0); Alkaline Phosphatase 48 U/L (45-117); BUN Blood Urea Nitrogen 9 mg/dL (7-18); Bicarbonate 26 mmol/L (21-32); Bilirubin Direct 0.2 mg/dL (0-0.2); Bilirubin Total 0.5 mg/dL (0.2-1.0); Glucose Level 112 mg/dL (74-106); Potassium 3.6 mmol/L (3.5-5.1); Sodium Level 139 mmol/L (136-145)
[2019-06-15 08:14] LABS: ALT/SGPT < 6 U/L (12-78)
--- NOTE | 2019-06-15 09:01 | ER ---
Nurse's Notes [facility] Name: Rachel Ramsay Age: 83 yrs Sex: Female : 1935 Arrival Date: 06/15/2019 Time: 06:40 Bed 19 Private MD: Adan Turner Diagnosis: Low back pain;Radiculopathy, lumbar region Presentation: 06/15 06:52 Presenting complaint: Patient states: C/O lower back pain that radiates to her right leg and knee. Pt states was doing PT last Sunday when she heard something popped and that is when the pain started. Transition of care: patient was not received from another setting of care. Onset of symptoms was June 15, 2019. Risk Assessment: Do you want to hurt yourself or someone else? Patient reports no desire to harm self or others. Initial Sepsis Screen: Does the patient meet any 2 criteria? No. Patient's initial sepsis screen is negative. Does the patient have a suspected source of infection? No. Patient's initial sepsis screen is negative. Care prior to arrival: None. 06:52 Method Of Arrival: Wheelchair 06:52 Acuity: BRANDI 3 Triage Assessment: 06:58 General: Appears in no apparent distress. Behavior is calm, cooperative, appropriate for age. 06:58 GI: Reports. Historical: - Allergies: 06:56 "histamines"; 06:56 Betadine; - Home Meds: 06:56 amitriptyline 10 mg Oral tab 1 tab daily [Active]; Carafate 100 mg/mL Oral susp 10 mL 4 wh times per day [Active]; diazepam 2 mg Oral tab 2 tabs [Active]; Eliquis 2.5 mg Oral tab 1 tab 2 times per day [Active]; levothyroxine 25 mcg tab 1 tab once daily [Active]; paroxetine HCl 10 mg Oral tab 1 tab once daily [Active]; pravastatin 40 mg Oral tab 1 tab once daily [Active]; ropinirole 0.5 mg Oral tab 1 tab 3 times per day [Active]; sotalol 120 mg Oral tab 1 tab 2 times per day [Active]; - PMHx: 06:56 chronic diarrhea; colon cancer; gastrointentional mucositis; hysterectomy; Pacemaker; uterine cancer; - Immunization history:: Adult Immunizations up to date. - Coronavirus screen:: The patient has NOT traveled to [place] in the past 14 days. - Social history:: Smoking status: Patient/guardian denies using. - Ebola Screening: : Patient negative for fever greater than or equal to 101.5 degrees Fahrenheit, and additional compatible Ebola Virus Disease symptoms Patient denies exposure to infectious person. Screenin:57 Abuse screen: Denies threats or abuse. Denies injuries from another. Nutritional wh screening: No deficits noted. Tuberculosis screening: No symptoms or risk factors identified. Fall Risk None identified. Assessment: 07:00 General: Appears uncomfortable, Behavior is calm, cooperative, Denies fever. Pain: rb1 Complains of pain in right low back Pain radiates to right leg Pain currently is 10 out of 10 on a pain scale. Neuro: Level of Consciousness is awake, alert, obeys commands, Oriented to person, place, time, situation. Cardiovascular: Capillary refill < 3 seconds is brisk in bilateral fingers. Respiratory: Airway is patent Respiratory effort is even, unlabored, Respiratory pattern is regular, symmetrical. GI: Abdomen is flat. : No signs and/or symptoms were reported regarding the genitourinary system. Derm: Skin is pink, warm \\T\\ dry. 08:00 Reassessment: Patient appears in no apparent distress at this time. Patient and/or rb1 family updated on plan of care and expected duration. Pain level reassessed. Patient is alert, oriented x 3, equal unlabored respirations, skin warm/dry/pink. pt. reports pain is 50% better. Family at the bedside. 08:23 Reassessment: Patient appears in no apparent distress at this time. Pt. went for X-ray. rb1 09:00 Reassessment: Patient appears in no apparent distress at this time. Patient and/or rb1 family updated on plan of care and expected duration. Pain level reassessed. Patient is alert, oriented x 3, equal unlabored respirations, skin warm/dry/pink. Vital Signs: 06:58 BP 161 / 83; Pulse 54; Resp 18; Temp 98.9; Pulse Ox 97% ; Weight 63.05 kg; Height 5 ft. wh 4 in. (162.56 cm); 07:58 BP 130 / 62; Pulse 78; Resp 14; Pulse Ox 98% ; Pain 5/10; rb1 08:58 BP 131 / 73; Pulse 66; Resp 17; Pulse Ox 99% on R/A; Pain 3/10; rb1 06:58 Body Mass Index 23.86 (63.05 kg, 162.56 cm) ED Course: 06:40 Patient arrived in ED. es 06:40 Adan Turner DO is Private Physician. es 06:43 [facility] jr8 06:43 Ap Humphrey MD is Attending Physician. jr8 06:54 Triage completed. 06:58 Patient has correct armband on for positive identification. Bed in low position. Call light in reach. Side rails up X 1. Pulse ox on. NIBP on. 07:00 Arm band placed on right wrist. rb1 07:04 Judi Zamorano, RN is Primary Nurse. rb1 07:12 Initial lab(s) drawn, by ia, sent to lab. Inserted saline lock: 20 gauge in right dh3 forearm, using aseptic technique. Blood collected. 08:59 Adan Turner DO is Referral Physician. jr8 09:05 No provider procedures requiring assistance completed. IV discontinued, intact, rb1 bleeding controlled, No redness/swelling at site. Pressure dressing applied. Administered Medications: 07:20 Drug: Decadron - Dexamethasone 10 mg Route: IVP; Site: right forearm; rb1 07:35 Follow up: Response: No adverse reaction rb1 07:20 Drug: fentaNYL (PF) 50 mcg Route: IVP; Site: right forearm; rb1 07:35 Follow up: Response: No adverse reaction rb1 07:20 Drug: Zofran 4 mg Route: IVP; Site: right forearm; rb1 07:35 Follow up: Response: No adverse reaction rb1 07:38 Drug: Robaxin 1 grams Route: IVPB; Infused Over: 1 hrs; Site: right forearm; rb1 08:40 Follow up: Response: No adverse reaction; IV Status: Completed infusion rb1 Outcome: 08:59 Discharge ordered by . jr8 09:17 Discharged to home via wheelchair, with family. rb1 09:17 Condition: stable 09:17 Discharge instructions given to patient, Instructed on discharge instructions, follow up and referral plans. medication usage, Demonstrated understanding of instructions, follow-up care, medications, Prescriptions given X 3. 09:18 Patient left the ED. rb1 Signatures: Zora Renee Josh, PA PA jr8 Judi Zamorano, RN RN rb1 Thelma Troy 3 Parish Hicks
--- NOTE | 2019-06-15 09:01 | EDPHYS ---
Physician Documentation [facility] Name: Rachel Ramsay Age: 83 yrs Sex: Female : 1935 Arrival Date: 06/15/2019 Time: 06:40 Bed 19 Private MD: Bita Turnerh ED Physician Ap Humphrey HPI: 06/15 07:47 This 83 yrs old Female presents to ER via Wheelchair with complaints of jr8 Vomiting, leg pain. 07:47 The patient presents with pain. The complaints affect the right leg. Onset: The jr8 symptoms/episode began/occurred gradually, 2 day(s) ago. Modifying factors: The symptoms are alleviated by nothing. the symptoms are aggravated by movement, weight bearing. Associated signs and symptoms: The patient has no apparent associated signs or symptoms. Severity of symptoms: At their worst the symptoms were moderate, in the emergency department the symptoms are unchanged. The patient has not experienced similar symptoms in the past. The patient has not recently seen a physician. Patient stated that she has sciatic and low back pain on right side that is not going away. Denies trauma. Has vomited secondary to pain. Has been going to physical therapy and felt pop in right knee that is radiating upwards as well making the leg pain worse . Historical: - Allergies: 06:56 "histamines"; wh 06:56 Betadine; - Home Meds: 06:56 amitriptyline 10 mg Oral tab 1 tab daily [Active]; Carafate 100 mg/mL Oral susp 10 mL 4 wh times per day [Active]; diazepam 2 mg Oral tab 2 tabs [Active]; Eliquis 2.5 mg Oral tab 1 tab 2 times per day [Active]; levothyroxine 25 mcg tab 1 tab once daily [Active]; paroxetine HCl 10 mg Oral tab 1 tab once daily [Active]; pravastatin 40 mg Oral tab 1 tab once daily [Active]; ropinirole 0.5 mg Oral tab 1 tab 3 times per day [Active]; sotalol 120 mg Oral tab 1 tab 2 times per day [Active]; - PMHx: 06:56 chronic diarrhea; colon cancer; gastrointentional mucositis; hysterectomy; Pacemaker; wh uterine cancer; - Immunization history:: Adult Immunizations up to date. - Coronavirus screen:: The patient has NOT traveled to [employer] in the past 14 days. - Social history:: Smoking status: Patient/guardian denies using. - Ebola Screening: : Patient negative for fever greater than or equal to 101.5 degrees Fahrenheit, and additional compatible Ebola Virus Disease symptoms Patient denies exposure to infectious person. ROS: 07:47 Eyes: Negative for injury, pain, redness, and discharge, ENT: Negative for injury, jr8 pain, and discharge, Neck: Negative for injury, pain, and swelling, Cardiovascular: Negative for chest pain, palpitations, and edema, Respiratory: Negative for shortness of breath, cough, wheezing, and pleuritic chest pain, Skin: Negative for injury, rash, and discoloration, Neuro: Negative for headache, weakness, numbness, tingling, and seizure. 07:47 Abdomen/GI: Positive for nausea, vomiting, Negative for abdominal pain, diarrhea, constipation, abdominal cramps, abdominal distension. 07:47 Back: Positive for pain at rest, pain with movement, radiated pain, of the right low back. 07:47 MS/extremity: Positive for pain, of the right leg, Negative for decreased range of motion. Exam: 07:47 Eyes: Pupils equal round and reactive to light, extra-ocular motions intact. Lids and jr8 lashes normal. Conjunctiva and sclera are non-icteric and not injected. Cornea within normal limits. Periorbital areas with no swelling, redness, or edema. ENT: Nares patent. No nasal discharge, no septal abnormalities noted. Tympanic membranes are normal and external auditory canals are clear. Oropharynx with no redness, swelling, or masses, exudates, or evidence of obstruction, uvula midline. Mucous membranes moist. Neck: Trachea midline, no thyromegaly or masses palpated, and no cervical lymphadenopathy. Supple, full range of motion without nuchal rigidity, or vertebral point tenderness. No Meningismus. Cardiovascular: Regular rate and rhythm with a normal S1 and S2. No gallops, murmurs, or rubs. Normal PMI, no JVD. No pulse deficits. Respiratory: Lungs have equal breath sounds bilaterally, clear to auscultation and percussion. No rales, rhonchi or wheezes noted. No increased work of breathing, no retractions or nasal flaring. Abdomen/GI: Soft, non-tender, with normal bowel sounds. No distension or tympany. No guarding or rebound. No evidence of tenderness throughout. Skin: Warm, dry with normal turgor. Normal color with no rashes, no lesions, and no evidence of cellulitis. MS/ Extremity: Pulses equal, no cyanosis. Neurovascular intact. Full, normal range of motion. Neuro: Awake and alert, GCS 15, oriented to person, place, time, and situation. Cranial nerves II-XII grossly intact. Motor strength 5/5 in all extremities. Sensory grossly intact. Cerebellar exam normal. Normal gait. 07:47 Back: pain, that is moderate, of the right low back, ROM is painful, normal spinal alignment noted, CVA tenderness, is absent, vertebral tenderness, is not appreciated, Straight leg raises: of both lower extremities does not illicit pain. Vital Signs: 06:58 BP 161 / 83; Pulse 54; Resp 18; Temp 98.9; Pulse Ox 97% ; Weight 63.05 kg; Height 5 ft. wh 4 in. (162.56 cm); 07:58 BP 130 / 62; Pulse 78; Resp 14; Pulse Ox 98% ; Pain 5/10; rb1 08:58 BP 131 / 73; Pulse 66; Resp 17; Pulse Ox 99% on R/A; Pain 3/10; rb1 06:58 Body Mass Index 23.86 (63.05 kg, 162.56 cm) wh MDM: 06:43 Patient medically screened. jr8 08:57 Data reviewed: vital signs, nurses notes, lab test result(s), radiologic studies, plain jr8 films. Data interpreted: Pulse oximetry: on room air is 98 %. Interpretation: normal. Counseling: I had a detailed discussion with the patient and/or guardian regarding: the historical points, exam findings, and any diagnostic results supporting the discharge/admit diagnosis, lab results, radiology results, the need for outpatient follow up, a family practitioner, to return to the emergency department if symptoms worsen or persist or if there are any questions or concerns that arise at home. Response to treatment: the patient's symptoms have markedly improved after treatment. ED course: Patient doing much better. Pain from 10 to a 2 now. Will continue on short course of pain meds since she is having continued pain. Will send home to f/u with PCP and physical therapy . 06/15 06:57 Order name: CBC with Diff jr8 06/15 06:57 Order name: Basic Metabolic Panel 8 06/15 06:57 Order name: LFT's rust 06/15 07:23 Order name: CBC with Automated Diff; Complete Time: 07:58 EDMS 06/15 08:14 Order name: Basic Metabolic Panel; Complete Time: 08:25 EDMS 06/15 08:15 Order name: Liver (Hepatic) Function; Complete Time: 08:25 EDMS 06/15 06:57 Order name: IV; Complete Time: 07:22 8 06/15 08:14 Order name: XRAY Lumbar Spine (3 Views) 8 Administered Medications: 07:20 Drug: Decadron - Dexamethasone 10 mg Route: IVP; Site: right forearm; rb1 07:35 Follow up: Response: No adverse reaction rb1 07:20 Drug: fentaNYL (PF) 50 mcg Route: IVP; Site: right forearm; rb1 07:35 Follow up: Response: No adverse reaction rb1 07:20 Drug: Zofran 4 mg Route: IVP; Site: right forearm; rb1 07:35 Follow up: Response: No adverse reaction rb1 07:38 Drug: Robaxin 1 grams Route: IVPB; Infused Over: 1 hrs; Site: right forearm; rb1 08:40 Follow up: Response: No adverse reaction; IV Status: Completed infusion rb1 Disposition: 06/16 08:13 Co-signature as Attending Physician, Ap Humphrey MD I agree with the assessment and yin plan of care. Disposition: 06/15/19 08:59 Discharged to Home. Impression: Low back pain, Radiculopathy, lumbar region. - Condition is Stable. - Discharge Instructions: Back Pain, Adult, Lumbosacral Radiculopathy, Musculoskeletal Pain, Back Exercises, [id number], Heat Therapy. - Prescriptions for Robaxin 500 mg Oral Tablet - take 2 tablet by ORAL route every 6 hours As needed; 40 tablet. Medrol (Adam) 4 mg Oral Tablets, Dose Pack - take 1 tablet by ORAL route as directed - follow package instructions; 1 packet. Tylenol- Codeine #3 300-30 mg Oral Tablet - take 1 tablet by ORAL route every 6 hours As needed; 12 tablet. - Medication Reconciliation Form, Thank You Letter, Antibiotic Education, Prescription Opioid Use form. - Follow up: Adan Turner, ; When: 2 - 3 days; Reason: Recheck today's complaints, Continuance of care, Re-evaluation by your physician. - Problem is new. - Symptoms have improved. Signatures: Dispatcher [employer] EDMS Ap Humphrey MD MD cha Roszak, Josh, PA PA jr8 Judi Zamorano, RN RN rb1 Parish Hicks wh Corrections: (The following items were deleted from the chart) 06/15 09:01 08:57 ED course: Patient doing much better. Pain from 10 to a 2 now. Will send home to [place] f/u with PCP and physical therapy . jr8 09:18 08:59 06/15/2019 08:59 Discharged to Home. Impression: Low back pain; Radiculopathy, rb1 lumbar region. Condition is Stable. Forms are Medication Reconciliation Form, Thank You Letter, Antibiotic Education, Prescription Opioid Use. Follow up: Adan Turner; When: 2 - 3 days; Reason: Recheck today's complaints, Continuance of care, Re-evaluation by your physician. Problem is new. Symptoms have improved. jr8
[2019-06-15 09:26] VITALS: TEMP 98.9
[2019-06-15 09:29] VITALS: BP 131/73; O2SAT 99
--- NOTE | 2019-06-15 09:40 | RAD REPORT ---
EXAM DESCRIPTION: RAD - Lumbar Spine 3 Views - 06/15/2019 8:32 am CLINICAL HISTORY: Back pain FINDINGS: No fracture or dislocation Moderate spondylosis involves L2-3 consisting disc space narrowing, osteophytes and subchondral scler osis. Mild scoliosis. Osteoporosis
== END 2019-06-15 09:18 | disposition home or self-care (01) ==
LOC: ER 06:36
DX: M54.16 Radiculopathy, lumbar region (principal); M25.561 Pain in right knee; Z79.01 Long term (current) use of anticoagulants; Z88.3 Allergy status to other anti-infective agents; Z88.8 Allergy status to other drugs, medicaments and biological substances; Z95.0 Presence of cardiac pacemaker; Z85.038 Personal history of other malignant neoplasm of large intestine; Z85.42 Personal history of malignant neoplasm of other parts of uterus
CPT/HCPCS: 96365; 85025; 80048; 36415; 80076; 72100; 96375; 99284; J3010; J2405; J2800

== ENCOUNTER 2020-07-29 11:30 | Day surgery (SDC) | payer MEDICARE ==
[2020-07-26 11:29] LABS: Absolute Lymphocytes (CBC) 2.2 K/uL (0.7-4.9); Basophils % 0.7 % (0-1.3); Hematocrit 41.3 % (36.0-45.0); Lymphocytes % 33.1 % (15.3-44.8); MPV 7.7 fL (7.6-11.3); RBC Red Blood Cell Count 4.66 M/uL (3.86-4.86)
--- NOTE | 2020-07-26 11:35 | RAD REPORT ---
EXAM DESCRIPTION: RAD - Chest Pa And Lat (2 Views) - 07/26/2020 11:27 am CLINICAL HISTORY: preop, pending cardiac catheterization COMPARISON: May 2019 TECHNIQUE: Frontal and lateral views of the chest were obtained. FINDINGS: The lungs are clear. Mildly fibrotic interstitial pattern matches comparison. Pacemaker i s in place. Heart size is normal and central vasculature is within normal limits. No pleural effusio n or pneumothorax seen. No acute bony finding noted. No aortic abnormality. IMPRESSION: No acute cardiopulmonary process. Chest is stable from prior imaging.
[2020-07-26 12:00] LABS: Protime INR 1.2
[2020-07-29] MEDS ORDERED: NA CHLORIDE 0.9% 500 ML ONE (12:01)
[2020-07-29] MEDS ORDERED: HEPA 1000U/500MLS 2,000 UNIT/1,000 ML BAG IV ONE (12:50)
[2020-07-29] MEDS ORDERED: HEPARIN 5000 UNIT/ML 1 ML VIAL ONE (15:15)
[2020-07-29] MEDS ORDERED: VERAPAMIL HCL 10 MG/4 ML VIAL IV ONE (15:16)
[2020-07-29] MEDS ORDERED: FENTANYL CITR 100 MCG/2 ML ONE (15:16)
[2020-07-29] MEDS ORDERED: MIDAZOLAM HCL 2 MG/2 ML INJ ONE (15:16)
[2020-07-29] MEDS ORDERED: ATROPINE SULF 1 MG/10 ML SYR IV ONE (15:17)
[2020-07-29] MEDS ORDERED: HEPARIN 10,000 UNIT/10 ML VIAL IV ONE (15:17)
[2020-07-29] MEDS ORDERED: NITROGLYCERIN 100 MCG/ML SYR (for cath lab use only) IV ONE (15:17)
[2020-07-29] MEDS ORDERED: METHYLPREDNISOLONE 125 MG INJ ONE (15:26)
[2020-07-29] MEDS ORDERED: DIPHENHYDRAMINE 50 MG/ML VIAL ONE (15:26)
--- NOTE | 2020-07-29 16:24 | OP ---
Date of Procedure: 07/29/2020 Surgeon: TAMARA TEJADA Procedure Performed: Distal aorta angiogram with bilateral selective peripheral angiogram. Indication: Pain in lower extremity with abnormal arterial Doppler suggestive of significant stenosi s of the right femoral artery. Complications: None. Bleeding: Less than 10 mL. Access: Right radial artery 6-Hungarian closed with TR band. Description Of Procedure: After risks, benefits, and alternatives were explained, the patient agreed to procedure and signed informed consent. The patient was brought into the cardiac catheterization laboratory, prepped and draped in usual sterile fashion and then we accessed the right radial artery using pediatric micropuncture kit and placed a 6-Hungarian slender sheath. Then, we took a long multipu rpose catheter into the distal aorta and distal aorta is widely patent and then selectively engaged t he right common iliac artery and did a runoff of the right lower extremity and then selectively engag ed the left femoral artery and did a selective angiogram of the left lower extremity vascular system. Then, we removed the catheter and sheath and placed TR band with good hemostasis. Findings: 1.Distal aorta is patent. 2.Right and left common iliac arteries are patent. No disease. 3.Right common femoral arteries and femoral arteries and left common femoral artery and femoral jose thong are patent and normal. No disease. 4.Bilateral profunda are patent. 5.Bilateral SFA are patent without any disease. 6.Scpxj-mxp-fgec circulation is patent without disease. Conclusion: No significant peripheral vascular disease. Plan: Medical management. /MODL Voice ID: [id number] Report ID: [id number]
[2020-07-29 16:57] VITALS: O2SAT 94
[2020-07-29 17:10] VITALS: TEMP 97.8
[2020-07-29 17:50] VITALS: BP 135/75
== END 2020-07-29 18:08 | disposition home or self-care (01) ==
LOC: CCL 11:30
PROVIDERS: ATTEND Internal Medicine
DX: I73.9 Peripheral vascular disease, unspecified (principal); M79.669 Pain in unspecified lower leg; I48.91 Unspecified atrial fibrillation; I10 Essential (primary) hypertension; Z95.0 Presence of cardiac pacemaker; Z20.822 Contact with and (suspected) exposure to COVID-19; Z88.8 Allergy status to other drugs, medicaments and biological substances; Z82.49 Family history of ischemic heart disease and other diseases of the circulatory system
CPT/HCPCS: 93005; 85025; 80048; 36415; 85610; 85730; 71046; 36200; 75630; U0002; C1893; J1200; J1644 ×2; J2250; J3010; J7040; J2930

== ENCOUNTER 2024-07-28 01:10 | Inpatient (IN) | payer MEDICARE, OTHER ==
[2024-07-28] MEDS ORDERED: FAMOTIDINE 20 MG/2 ML VIAL IV ONE (01:57)
[2024-07-28] MEDS ORDERED: NA CHLORIDE 0.9% 1,000 ML ONE (01:58)
[2024-07-28 02:08] LABS: Protime INR 1.52
[2024-07-28 02:11] LABS: Absolute Eosinophils 0.2 K/uL (0-0.5); Absolute Lymphocytes (CBC) 1.8 K/uL (0.7-4.9); Absolute Monocytes 0.9 K/uL (0.1-1.3); Absolute Neutrophil 4.6 K/uL (1.8-8.0); Basophils % 0.2 % (0-1.3); Hematocrit 36.4 % (36.0-45.0); Hemoglobin 12.3 g/dL (12.0-15.0); Lymphocytes % 24.3 % (15.3-44.8); MCH 30.9 pg (27.0-35.0); MCHC 33.9 g/dL (32.0-36.0); MPV 7.9 fL (7.6-11.3); Monocytes % 11.4 % (3.3-12.3); Neutrophils % 61.1 % (41.7-73.7); Platelets 208 thou/uL (152-406); Red Cell Distribution Width 13.4 % (12.1-15.2)
[2024-07-28 02:21] LABS: Albumin 3.1 g/dL (3.4-5.0); Alkaline Phosphatase 62 U/L (45-117); Anion Gap 7.2 mEq/L (5.0-15.0); BUN Blood Urea Nitrogen 15 mg/dL (7-18); Bicarbonate 31 mEq/L (21-32); Bilirubin Direct 0.3 mg/dL (0-0.2); Bilirubin Indirect, Calculated 0.8 mg/dL (0.2-0.8); Bilirubin Total 1.1 mg/dL (0.2-1.0); Globulin 3.2 g/dL (2.3-3.5); Glomerular Filtration Rate 60 ml/min (=/>90); Glucose Level 106 mg/dL (74-106); Lipase 12 U/L (13-75); Magnesium 1.8 mg/dL (1.6-2.4); NT PRO-BNP 1223 pg/mL (<450); Potassium 3.2 mEq/L (3.5-5.1); Protein, Total 6.3 g/dL (6.4-8.2); Sodium Level 142 mEq/L (136-145); Troponin High Sensitivity 14.5 pg/mL (<58.9)
--- NOTE | 2024-07-28 02:22 | ER ---
Nurse's Notes [facility] Name: Rachel Ramsay Age: 88 yrs Sex: Female : 1935 Arrival Date: 07/28/2024 Time: 01:10 Bed 20 Private MD: Diagnosis: Repeated falls;Displaced bicondylar fracture of left tibia, initial encounter for closed fracture;Nondisplaced transverse fracture of shaft of left fibula, initial encounter for closed fracture;Paroxysmal atrial fibrillation;Essential (primary) hypertension;senior care (current) use of anticoagulants;Hypokalemia Presentation: 07/28 01:13 Chief complaint: EMS states: Pt fell twice today. She fell this morning and they jb4 X-rayed the left leg and it was fine. She fell again at 2100 from standing and they checked on her at 0000 and noticed swelling the the left lower extremity. Care prior to arrival: None. Mechanism of Injury: Fall from standing position. Trauma event details: Injury occurred in the [facility]. 01:13 Acuity: BRANDI 3 jb4 01:13 Method Of Arrival: EMS: [facility] jb4 01:22 Coronavirus screen: At this time, the client does not indicate any symptoms associated jb4 with coronavirus-19. Ebola Screen: No symptoms or risks identified at this time. Initial Sepsis Screen: Does the patient meet any 2 criteria? No. Patient's initial sepsis screen is negative. Does the patient have a suspected source of infection? No. Patient's initial sepsis screen is negative. Risk Assessment: Do you want to hurt yourself or someone else? Patient reports no desire to harm self or others. Onset of symptoms was July 28, 2024. Transition of care: patient was not received from another setting of care. Historical: - Allergies: 01:24 Betadine; jb4 01:24 histamines; jb4 01:24 codeine; jb4 - PMHx: 01:24 chronic diarrhea; hysterectomy; gastrointentional mucositis; Pacemaker; colon cancer; jb4 uterine cancer; a-fib; ataxic gait; depression; Hypothyroidism; Osteoporosis; Osteoarthritis; HTN; GERD; - Immunization history: Last tetanus immunization: unknown. - Infectious Disease History:: Denies. - Social history:: Smoking status: Patient denies any tobacco usage or history of. Screenin:19 [facility] ED Fall Risk Assessment (Adult) History of falling in the last 3 months, jr13 including since admission Yes- single mechanical fall (1 pt) Confusion or Disorientation Yes (5 pts) Intoxicated or Sedated No (0 pts) Impaired Gait Yes (1 pt) Mobility Assist Device Used Yes (1 pt) Altered Elimination Yes (1 pt) Score/Fall Risk Level 3 or more points = High Risk Oriented to surroundings, Maintained a safe environment, Educated pt \T\ family on fall prevention, incl call for assistance when getting out of bed. Abuse screen: Denies threats or abuse. Denies injuries from another. Nutritional screening: No deficits noted. Tuberculosis screening: No symptoms or risk factors identified. Primary Survey: 01:13 NO uncontrolled hemorrhage observed. A: The client is awake and alert. The airway is jb4 patent. Breathing/Chest: Spontaneous respiratory effort, equal unlabored respirations, breath sounds clear bilaterally, regular pattern, symmetrical chest rise and fall. Circulation: No external hemorrhage present. Regular and strong central pulse, skin warm/dry/normal color. Disability Pupils are equal, round, reactive to light and accommodation. Exposure/Environment: All clothing and personal items were removed. Forensic evidence collection is not deemed to be indicated at this time. Items placed in patient belonging bag. 05:10 Reassessment Breathing: Spontaneous respiratory effort, equal unlabored respirations, jr13 breath sounds clear bilaterally, regular pattern with symmetrical chest rise and fall. Secondary Survey: 01:13 HEENT: No deficits noted. Gastrointestinal: No deficits noted. : No deficits noted. jb4 Musculoskeletal: Swelling present in left knee and left quiles. Injury Description: hematoma to left knee and left quiles. Assessment: 01:13 General: Appears uncomfortable, Behavior is calm, cooperative, appropriate for age. jr13 Pain: Complains of pain in left leg Pain currently is 2 out of 10 on a pain scale. Neuro: Level of Consciousness is awake, alert, obeys commands, Oriented to person, place, time, Has hx of dementia but patient is aware AOx4. . Cardiovascular: No deficits noted. Capillary refill < 3 seconds. Respiratory: No deficits noted. Airway is patent. GI: No deficits noted. Abdomen is round obese. : No signs and/or symptoms were reported regarding the genitourinary system. EENT: No deficits noted. Derm: No deficits noted. Musculoskeletal: Circulation, motion, and sensation intact. Capillary refill < 3 seconds, Swelling present in Swelling and bruising to left leg. Vital Signs: 01:13 BP 186 / 81; Pulse 74; Resp 18; Temp 98.3(O); Pulse Ox 97% on R/A; jb4 02:00 BP 142 / 76; Pulse 88; Resp 18; Pulse Ox 98% ; jr13 03:00 BP 149 / 138; Pulse 118; Resp 17; Pulse Ox 100% on R/A; jr13 04:00 BP 136 / 117; Pulse 121; Resp 18; Pulse Ox 100% 3 lpm ; jr13 Alfonso Coma Score: 01:13 Eye Response: spontaneous(4). Motor Response: obeys commands(6). Verbal Response: jb4 confused(4). Total: 14. Trauma Score (Adult): 01:13 Eye Response: spontaneous(1); Verbal Response: confused(1); Motor Response: obeys jb4 commands(2); Systolic BP: > 89 mm Hg(4); Respiratory Rate: 10 to 29 per min(4); Alfonso Score: 14; Trauma Score: 12 ED Course: 01:11 Patient arrived in ED. jj6 01:13 Jessica Interiano, RN is Primary Nurse. jr13 01:13 Patient maintains SpO2 saturation greater than 95% on room air. Thermoregulation: warm jb4 blanket given to patient. 01:17 Triage completed. jb4 01:17 Ap Humphrey MD is Attending Physician. yin 01:19 Patient has correct armband on for positive identification. Fall risk band placed. jr13 Placed in gown. Bed in low position. Call light in reach. Side rails up X2. Adult w/ patient. Provided Education on: Plan of care. 01:24 Arm band placed on right wrist. jb4 01:45 XRAY Chest (1 view) In Process Unspecified. EDMS 01:45 Knee Left 3 View XRAY In Process Unspecified. EDMS 01:45 Tib Fib Left XRAY In Process Unspecified. EDMS 01:45 Inserted saline lock: 20 gauge in left antecubital area, using aseptic technique. Blood jr13 collected. Flushed with 10 mL NS. 01:51 Basic Metabolic Panel Sent. jr13 01:51 CBC with Diff Sent. jr13 01:51 LFT's Sent. jr13 01:51 Magnesium Sent. jr13 01:51 NT PRO-BNP Sent. jr13 01:51 PT-INR Sent. jr13 01:51 Troponin HS Sent. jr13 01:59 EKG done, by ED staff, reviewed by Ap Humphrey MD. oe 02:02 Joey Fuentes MD is Hospitalizing Provider. yin 02:19 Chest Abd Pelvis Wo Con In Process Unspecified. EDMS 02:19 Head C Spine Mpr Wo Con In Process Unspecified. EDMS 03:10 Knee Left Wo Con In Process Unspecified. EDMS 05:09 No provider procedures requiring assistance completed. Patient admitted, IV remains in jr13 place. Administered Medications: 02:05 Drug: NS 0.9% IV 500 ml 500 ml IV at 1 bolus once; to be given as a bolus over 30 jr13 minutes Volume: 500 ml; Route: IV; Rate: 1 bolus; Site: left antecubital; 02:51 Follow up: IV Status: Completed infusion jr13 02:05 Drug: NS 0.9% IV 500 ml 500 ml IV at 125 ml/hr once Volume: 500 ml; Route: IV; Rate: jr13 125 ml/hr; Site: left antecubital; 02:05 Drug: Famotidine IVP 20 mg IVP once; dilute with 10 mL 0.9% NaCl; give over 2 minutes jr13 Route: IVP; Site: left antecubital; 02:51 Follow up: Response: No adverse reaction jr13 02:43 Drug: Ondansetron IVP 4 mg IVP once; over 2 minutes Route: IVP; Site: left antecubital; jr13 02:50 Follow up: Response: No adverse reaction jr13 02:44 Drug: fentaNYL (PF) IVP 25 mcg IVP once Route: IVP; Site: left antecubital; jr13 02:50 Follow up: Response: No adverse reaction jr13 03:34 Drug: Metoprolol IVP 5 mg IVP once; Hold for SBP <100 or HR <60. Route: IVP; Site: left jr13 antecubital; 03:34 Drug: Metoprolol PO 50 mg PO once Route: PO; jr13 03:56 Drug: Metoprolol IVP 5 mg IVP once; Hold for SBP <100 or HR <60. Route: IVP; Site: left br2 antecubital; 04:55 Drug: Magnesium Sulfate IVPB 1 grams IVPB once over 1 hrs Route: IVPB; Infused Over: 1 jr13 hrs; Site: left antecubital; 04:55 Drug: Sotalol PO 120 mg PO once Route: PO; jr13 05:09 Drug: Diltiazem PO 60 mg PO once Route: PO; jr13 Medication: 05:11 VIS not applicable for this client. jr13 Outcome: 02:22 Decision to Hospitalize by Provider. yin 05:09 Admitted to Tele accompanied by tech, via wheelchair, jr13 05:09 Condition: stable 05:09 Instructed on the need for admit, 05:13 Patient left the ED. jr13 Signatures: Dispatcher [employer] EDMS Ap Humphrey MD MD cha Bryson, James, RN RN jb4 Kong Mathias Jennifer jj6 Dorothy Oneal, RN RN br2 Jessica Interiano RN RN jr13
--- NOTE | 2024-07-28 02:22 | EDPHYS ---
Physician Documentation [facility] Name: Rachel Ramsay Age: 88 yrs Sex: Female : 1935 Arrival Date: 07/28/2024 Time: 01:10 Bed 20 Private MD: ED Physician Ap Humphrey HPI: 07/28 01:56 This 88 yrs old Female presents to ER via EMS with complaints of Fall Injury. [facility] 01:56 Details of fall: The patient fell from an upright position, while standing, while [facility] walking. Onset: The symptoms/episode began/occurred yesterday. Associated injuries: The patient sustained lateral aspect of left knee, lateral aspect of left calf, medial aspect of left knee, medial aspect of left calf, left knee and left quiles, decreased range of motion, hematoma, painful injury, swelling. Severity of symptoms: At their worst the symptoms were moderate, in the emergency department the symptoms are unchanged. The patient has experienced a previous episode, yesterday. Historical: - Allergies: 01:24 Betadine; jb4 01:24 histamines; jb4 01:24 codeine; jb4 - PMHx: 01:24 chronic diarrhea; hysterectomy; gastrointentional mucositis; Pacemaker; colon cancer; jb4 uterine cancer; a-fib; ataxic gait; depression; Hypothyroidism; Osteoporosis; Osteoarthritis; HTN; GERD; - Immunization history: Last tetanus immunization: unknown. - Infectious Disease History:: Denies. - Social history:: Smoking status: Patient denies any tobacco usage or history of. ROS: 01:58 Constitutional: Negative for fever, chills, and weight loss, Eyes: Negative for injury, yin pain, redness, and discharge, ENT: Negative for injury, pain, and discharge, Neck: Negative for injury, pain, and swelling, Cardiovascular: Negative for chest pain, palpitations, and edema, Respiratory: Negative for shortness of breath, cough, wheezing, and pleuritic chest pain, Abdomen/GI: Negative for abdominal pain, nausea, vomiting, diarrhea, and constipation, Back: Negative for injury and pain, : Negative for injury, bleeding, discharge, and swelling, Skin: Negative for injury, rash, and discoloration, Neuro: Negative for headache, weakness, numbness, tingling, and seizure, Psych: Negative for depression, anxiety, suicide ideation, homicidal ideation, and hallucinations, Allergy/Immunology: Negative for hives, rash, and allergies, Endocrine: Negative for neck swelling, polydipsia, polyuria, polyphagia, and marked weight changes, Hematologic/Lymphatic: Negative for swollen nodes, abnormal bleeding, and unusual bruising, :58 MS/extremity: Positive for injury or acute deformity, contusion, decreased range of motion, swelling, tenderness, of the lateral aspect of left knee, lateral aspect of left calf, medial aspect of left knee, medial aspect of left calf, left knee and left quiles, Exam: :58 Constitutional: This is a well developed, well nourished patient who is awake, alert, yin and in no acute distress. Head/Face: Normocephalic, atraumatic. Eyes: Pupils equal round and reactive to light, extra-ocular motions intact. Lids and lashes normal. Conjunctiva and sclera are non-icteric and not injected. Cornea within normal limits. Periorbital areas with no swelling, redness, or edema. ENT: Nares patent. No nasal discharge, no septal abnormalities noted. Tympanic membranes are normal and external auditory canals are clear. Oropharynx with no redness, swelling, or masses, exudates, or evidence of obstruction, uvula midline. Mucous membranes moist. Neck: Trachea midline, no thyromegaly or masses palpated, and no cervical lymphadenopathy. Supple, full range of motion without nuchal rigidity, or vertebral point tenderness. No Meningismus. Chest/axilla: Normal chest wall appearance and motion. Nontender with no deformity. No lesions are appreciated. Cardiovascular: Regular rate and rhythm with a normal S1 and S2. No gallops, murmurs, or rubs. Normal PMI, no JVD. No pulse deficits. Respiratory: Lungs have equal breath sounds bilaterally, clear to auscultation and percussion. No rales, rhonchi or wheezes noted. No increased work of breathing, no retractions or nasal flaring. Abdomen/GI: Soft, non-tender, with normal bowel sounds. No distension or tympany. No guarding or rebound. No evidence of tenderness throughout. Back: No spinal tenderness. No costovertebral tenderness. Full range of motion. Female : Normal external genitalia. Skin: Warm, dry with normal turgor. Normal color with no rashes, no lesions, and no evidence of cellulitis. Neuro: Awake and alert, GCS 15, oriented to person, place, time, and situation. Cranial nerves II-XII grossly intact. Motor strength 5/5 in all extremities. Sensory grossly intact. Cerebellar exam normal. Normal gait. Psych: Awake, alert, with orientation to person, place and time. Behavior, mood, and affect are within normal limits. 01:58 ECG was reviewed by the Attending Physician. 01:58 Musculoskeletal/extremity: Extremities: grossly normal except: noted in the lateral aspect of left knee, lateral aspect of left calf, medial aspect of left knee, medial aspect of left calf, left knee and left quiles: contusion, decreased ROM, ecchymosis, pain, swelling, tenderness, 03:34 ECG was reviewed by the Attending Physician. 04:51 ECG was reviewed by the Attending Physician. [facility] Vital Signs: 01:13 BP 186 / 81; Pulse 74; Resp 18; Temp 98.3(O); Pulse Ox 97% on R/A; jb4 02:00 BP 142 / 76; Pulse 88; Resp 18; Pulse Ox 98% ; jr13 03:00 BP 149 / 138; Pulse 118; Resp 17; Pulse Ox 100% on R/A; jr13 04:00 BP 136 / 117; Pulse 121; Resp 18; Pulse Ox 100% 3 lpm ; jr13 Alfonso Coma Score: 01:13 Eye Response: spontaneous(4). Motor Response: obeys commands(6). Verbal Response: jb4 confused(4). Total: 14. Trauma Score (Adult): 01:13 Eye Response: spontaneous(1); Verbal Response: confused(1); Motor Response: obeys jb4 commands(2); Systolic BP: > 89 mm Hg(4); Respiratory Rate: 10 to 29 per min(4); [place] Score: 14; Trauma Score: 12 MDM: 01:17 Medical Screening Exam initiated yin 02:00 Differential diagnosis: closed fracture, contusion, tendonitis. Differential Diagnosis yin altered mental status, sepsis, flu. Differential diagnosis: abrasion, closed head injury, contusion, fracture, laceration, multiple trauma, sprain, strain. Data reviewed: vital signs, nurses notes, EMS record, lab test result(s), EKG, radiologic studies, CT scan, plain films. Consideration of Admission/Observation Patient was admitted/placed on observation. Escalation of care including admission/observation considered. I considered the following discharge prescriptions or medication management in the emergency department Medications were administered in the Emergency Department. See MAR. Independent interpretation of the following test(s) in the Emergency Department EKG: See my EKG interpretation above. Test considered but Not performed: Ultrasound no fast exam. Historians other than the Patient: EMS: ems well informed. Care significantly affected by the following chronic conditions: Obesity, Cancer, diarrhea. Counseling: I had a detailed discussion with the patient and/or guardian regarding the historical points, exam findings, and any diagnostic results supporting the discharge/admit diagnosis, the presence of at least one elevated blood pressure reading (>120/80) during this emergency department visit, lab results, radiology results, the need for further work-up and treatment in the hospital. 07/28 01:22 Order name: Basic Metabolic Panel; Complete Time: 04:46 yin 07/28 01:22 Order name: CBC with Diff; Complete Time: 04:46 yin 07/28 01:22 Order name: LFT's; Complete Time: 04:46 yin 07/28 01:22 Order name: Magnesium; Complete Time: 04:46 yin 07/28 01:22 Order name: NT PRO-BNP; Complete Time: 04:46 yin 07/28 01:22 Order name: PT-INR; Complete Time: 04:46 yin 07/28 01:22 Order name: Troponin HS; Complete Time: 04:46 yin 07/28 01:22 Order name: Lipase; Complete Time: 04:46 yin 07/28 01:22 Order name: Urinalysis w/ reflexes yin 07/28 03:05 Order name: Urinalysis w/ reflexes EDMS 07/28 03:05 Order name: CBC with Automated Diff EDMS 07/28 03:05 Order name: CBC with Automated Diff EDMS 07/28 03:05 Order name: Comprehensive Metabolic Panel EDMS 07/28 03:05 Order name: Comprehensive Metabolic Panel EDMS 07/28 01:22 Order name: XRAY Chest (1 view) yin 07/28 01:22 Order name: Knee Left 3 View XRAY yin 07/28 01:22 Order name: Tib Fib Left XRAY yin 07/28 01:38 Order name: Chest Abd Pelvis Wo Con EDMS 07/28 01:40 Order name: Head C Spine Mpr Wo Con EDMS 07/28 02:45 Order name: Knee Left Wo Con EDMS 07/28 05:10 Order name: CT EDNM 07/28 03:05 Order name: CONS Physician Consult EDNM 07/28 01:22 Order name: Cardiac monitoring; Complete Time: 01:[address] [facility] 07/28 01:22 Order name: EKG - Nurse/Tech; Complete Time: 01:[address] [facility] 07/28 01:22 Order name: IV Saline Lock; Complete Time: :[address] [facility] 07/28 01:22 Order name: Labs collected and sent; Complete Time: 01:[address] [facility] 07/28 01:22 Order name: O2 Per Protocol; Complete Time: : [facility] 07/28 01:22 Order name: O2 Sat Monitoring; Complete Time: : [facility] 07/28 02:22 Order name: Knee Immobilizer; Complete Time: 02:[address] [facility] 07/28 02:22 Order name: Ice pack; Complete Time: 02:[address] [facility] 07/28 04:49 Order name: Blood Pressure Recheck [facility] EC:58 Rate is 74 beats/min. Rhythm is regular. QRS [place] is Normal. IN interval is normal. QRS yin interval is normal. QT interval is normal. No Q waves. T waves are Normal. No ST changes noted. Clinical impression: NSR w/ Non-specific ST/T Changes and No evidence of ischemia. Interpreted by me. Reviewed by me. 03:34 Rate is 118 beats/min. Rhythm is irregular. QRS interval is normal. QT interval is cp normal. Interpreted by me. Reviewed by me. 04:51 Rate is 125 beats/min. Rhythm is irregularly irregular. QRS [place] is Normal. IN interval yin is normal. QRS interval is normal. QT interval is normal. No Q waves. T waves are Normal. No ST changes noted. Clinical impression: Atrial Fibrillation. Interpreted by me. Reviewed by me. Administered Medications: 02:05 Drug: NS 0.9% IV 500 ml 500 ml IV at 1 bolus once; to be given as a bolus over 30 jr13 minutes Volume: 500 ml; Route: IV; Rate: 1 bolus; Site: left antecubital; 02:51 Follow up: IV Status: Completed infusion jr13 02:05 Drug: NS 0.9% IV 500 ml 500 ml IV at 125 ml/hr once Volume: 500 ml; Route: IV; Rate: jr13 125 ml/hr; Site: left antecubital; 02:05 Drug: Famotidine IVP 20 mg IVP once; dilute with 10 mL 0.9% NaCl; give over 2 minutes jr13 Route: IVP; Site: left antecubital; 02:51 Follow up: Response: No adverse reaction jr13 02:43 Drug: Ondansetron IVP 4 mg IVP once; over 2 minutes Route: IVP; Site: left antecubital; jr13 02:50 Follow up: Response: No adverse reaction jr13 02:44 Drug: fentaNYL (PF) IVP 25 mcg IVP once Route: IVP; Site: left antecubital; jr13 02:50 Follow up: Response: No adverse reaction jr13 03:34 Drug: Metoprolol IVP 5 mg IVP once; Hold for SBP <100 or HR <60. Route: IVP; Site: left jr13 antecubital; 03:34 Drug: Metoprolol PO 50 mg PO once Route: PO; jr13 03:56 Drug: Metoprolol IVP 5 mg IVP once; Hold for SBP <100 or HR <60. Route: IVP; Site: left br2 antecubital; 04:55 Drug: Magnesium Sulfate IVPB 1 grams IVPB once over 1 hrs Route: IVPB; Infused Over: 1 jr13 hrs; Site: left antecubital; 04:55 Drug: Sotalol PO 120 mg PO once Route: PO; jr13 05:09 Drug: Diltiazem PO 60 mg PO once Route: PO; jr13 Disposition: 04:49 Co-signature as Attending Physician, Ap Humphrey MD I agree with the assessment and yin plan of care. Disposition Summary: 07/28/24 02:22 Hospitalization Ordered Notes: Provider: Joey Fuentes yin Condition: Fair yin Problem: new yin Symptoms: have improved yin Bed/Room Type: Standard yin Hospitalization Status: Inpatient Admission(07/28/24 04:51) yin Location: Telemetry/MedSurg (Inpatient)(07/28/24 04:51) yin Room Assignment: 206(07/28/24 04:55) sp Diagnosis - Repeated falls yin - Displaced bicondylar fracture of left tibia, initial encounter for closed fracture yin - Nondisplaced transverse fracture of shaft of left fibula, initial encounter for yin closed fracture - Paroxysmal atrial fibrillation yin - Essential (primary) hypertension yin - salvage determiner (current) use of anticoagulants yin - Hypokalemia yin Forms: - Medication Reconciliation Form yin - SBAR form yin - Leadership Thank You Letter yin Signatures: Dispatcher [employer] EDAp Lam MD MD cha Pinkerton, Shawna sp Page, Corey, PA PA cp Bryson, James, RN RN jb4 Dorothy Oneal RN RN br2 Jessica Interiano, RN RN jr13 Corrections: (The following items were deleted from the chart) 01:23 01:23 BASIC METABOLIC PANEL+C.LAB.BRZ ordered. EDMS EDMS 01:23 01:23 CBC+H.LAB.BRZ ordered. EDMS EDMS 01:23 01:23 HEPATIC FUNCTION+C.LAB.BRZ ordered. EDMS EDMS 01:23 01:23 MAGNESIUM+C.LAB.BRZ ordered. EDMS EDMS 01:23 01:23 PROBNP+C.LAB.BRZ ordered. EDMS EDMS 01:23 01:23 PROTIME (+INR)+COAG.LAB.BRZ ordered. EDMS EDMS 01:23 01:23 Troponin High Sensitivity+C.LAB.BRZ ordered. EDMS EDMS 01:23 01:23 LIPASE+C.LAB.BRZ ordered. EDMS EDMS 01:23 01:23 Urinalysis+U.LAB.BRZ ordered. EDMS EDMS 01:23 01:23 Chest Single View+RAD.RAD.BRZ ordered. EDMS EDMS 01:23 01:23 Head C Spine Cap Wo Con+CT.RAD.BRZ ordered. EDMS EDMS 01:23 01:23 Knee Left 3 View+RAD.RAD.BRZ ordered. EDMS EDMS 01:23 01:23 Tib Fib Left+RAD.RAD.BRZ ordered. EDMS EDMS 02:45 02:20 CT LEFT KNEE WO CONTRAST ordered. EDMS EDMS 03:09 02:22 yin sp 04:51 02:22 Observation yin yin 04:51 02:22 Telemetry/MedSurg (observation) yin yin 04:51 03:09 206 sp yin 04:55 04:51 yin sp
[2024-07-28 02:25] LABS: ALT/SGPT < 14 U/L (13-56); AST/SGOT < 10 U/L (15-37)
[2024-07-28] MEDS ORDERED: ONDANSETRON 4 MG/2 ML VIAL ONE (02:30)
[2024-07-28] MEDS ORDERED: FENTANYL CITR 100 MCG/2 ML ONE (02:30)
--- NOTE | 2024-07-28 02:59 | P.HP ---
Certification for Inpatient Patient admitted to: Inpatient With expected LOS: >2 Midnights Practitioner: I am a practitioner with admitting privileges, knowledge of patient current condition, hospital course, and medical plan of care. Services: Services provided to patient in accordance with Admission requirements found in Title 42 Section 412.3 of the Code of Federal Regulations Patient History Date of Service: 07/28/24 Reason for admission: Falls History of Present Illness: 88 yrs old Female with past medical history of hypertension, hyperlipidemia, atrial fibrillation status post pacemaker, GERD, osteoarthritis, hypothyroidism, osteoporosis, chronic diarrhea, history of colon cancer and uterine cancer, ataxia, depression, gastrointestinal mucositis, who was brought to ER after suffering a fall. Patient fell from upright position while standing hitting lateral aspect of the left knee and suffering a lot of pain in left knee and ankle. She fell in yesterday. Denies any syncope or loss of consciousness. Denies any head injury. No fever or chills. No chest pain or shortness of breath. Patient was assessed in the ER and was found to have left tib-fib fracture and was admitted for further management and orthopedic consultation Allergies povidone-iodine [From Betadine] Allergy (Verified 07/26/20 10:26) Rash soap [From Betadine] Allergy (Verified 07/26/20 10:26) Rash Home medications list reviewed: Yes Home Medications: Acetaminophen [Pain Relief Extra Strength] 500 mg PO BID PRN 04/19/19 Amitriptyline HCl 10 mg PO BEDTIME 04/19/19 Apixaban [Eliquis *] 2.5 mg PO BID 04/19/19 Cholecalciferol (Vitamin D3) [Vitamin D3] 1 cap PO BID 04/19/19 Levothyroxine Sodium [Synthroid] 50 mcg PO [id number] 04/19/19 Omeprazole Magnesium [Prilosec Otc] 20 mg PO DAILY PRN 04/19/19 PARoxetine HCL [Paxil*] 10 mg PO [id number] 04/19/19 Pravastatin Sodium [Pravachol] 40 mg PO BEDTIME 04/19/19 Ropinirole HCl [Requip*] 0.5 mg PO TID 04/19/19 diazePAM [Valium*] 1 mg PO BID 04/19/19 Benzonatate [Tessalon Perle] 100 mg PO TID PRN #10 cap 06/05/19 Fluticasone [Flonase 50MCG Nasal [place]*] 1 sprays CIERRA BID #1 btl 06/05/19 Guaifenesin [Mucinex] 600 mg PO BID PRN #10 tab.er.12h 06/05/19 Sotalol HCl [Betapace*] 160 mg PO BID #120 tab 06/05/19 - Past Medical/Surgical History Diabetic: No Past Medical History: Reviewed- Non-Contributory -: History of colon cancer -: 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 She is a . - Family History Father -: Cancer Mother -: Cancer - Social History Smoking Status: Never smoker Alcohol use: No CD- Drugs: No Caffeine use: No Review of Systems 10-point ROS is otherwise unremarkable Physical Examination - Vital Signs Temperature: 98.2 F Blood Pressure: 186/81 Pulse: 74 Respirations: 18 Pulse Ox (%): 94 - Physical Exam General: Alert, Oriented x3, Moderate distress HEENT: Atraumatic, Normocephalic Neck: Supple Respiratory: Clear to auscultation bilaterally, Normal air movement Cardiovascular: Regular rate/rhythm, Normal S1 S2 Capillary refill: <2 Seconds Gastrointestinal: Soft and benign, W/out hepatosplenomegaly Musculoskeletal: No clubbing, Swelling, Tenderness Integumentary: No rashes, No breakdown Neurological: Normal speech, Cranial nerves 3-12 intact, Normal reflexes 2+ Lymphatics: No axilla or inguinal lymphadenopathy - Studies Laboratory Data (last 24 hrs) 07/28/24 07/28/24 07/28/24 01:45 01:45 01:45 WBC 7.50 Hgb 12.3 Hct 36.4 Plt Count 208 PT 17.0 H INR 1.52 Sodium 142 Potassium 3.2 L BUN 15 Creatinine 0.92 Glucose 106 Magnesium 1.8 Total Bilirubin 1.1 H AST < 10 L ALT < 14 Alkaline Phosphatase 62 Lipase 12 L Assessment and Plan - Plan Left tibial and fibular fracture History of fall Pain control Xray Findings noted Orthopedic consultation Atrial fibrillation Status post pacemaker Monitor closely on telemetry On anticoagulation Will hold p.o. anticoagulation Change to Lovenox bridge once weight is documented Will get an echocardiogram Cardiology consult for preop clearance Continue home medications Hypertension Antihypertensives titrated Continue home medications and titrate as needed Hyperlipidemia Continue statin GI/DVT prophylaxis Advanced directive full code Discharge Plan: Home Plan to discharge in: 48 Hours - Advance Directives Does patient have a Living Will: No Does patient have a Durable POA for Healthcare: No - Code Status/Comfort Care Code Status: Full Code Time Spent Managing Pts Care (In Minutes): 48
--- NOTE | 2024-07-28 03:19 | RAD REPORT ---
EXAM: CT Head and Cervical Spine Without Intravenous Contrast CLINICAL HISTORY: Pain; Trauma TECHNIQUE: Axial computed tomography images of the head/brain and cervical spine without intravenous contrast. Sagittal and coronal reformatted images were created and reviewed. This CT exam was performed using one or more of the following dose reduction techniques: automated exposure control, adjustmen t of the mA and/or kV according to patient size, and/or use of iterative reconstruction technique. COMPARISON: No relevant prior studies available. FINDINGS: Brain: Mild to moderate cerebral atrophy. Mild bilateral periventricular and subcortical white jone er low attenuation most compatible with chronic microvascular angiopathy. No hemorrhage. Ventricles: Unremarkable. No ventriculomegaly. Skull: No acute fracture. Sinuses: Unremarkable as visualized. No acute sinusitis. Mastoid air cells: Unremarkable as visualized. No mastoid effusion. Vertebrae: Grade 1 anterolisthesis of C2 on C3. No acute fracture or subluxation. Discs/spinal canal/neural foramina: Severe multilevel degenerative changes. The central thecal sac is moderately to severely compromised at C4-C5 and C5-C6. Soft tissues: Unremarkable. Vasculature: There is atherosclerotic disease of the internal carotid and vertebral arteries bilate rally. IMPRESSION: 1. No acute intracranial or extra-axial abnormality. 2. No acute cervical spine injury. 3. Other findings as above. Electronically signed by: Ramonita Gonzalez MD 07/28/2024 03:15 AM CDT Due to temporary technical issues with the PACS/[employer] reporting system, reports are being mann d by the in-house radiologist without review as a courtesy to ensure prompt reporting the interpreting radiologist is fully responsible for the content of the report. Transcribed Date/Time: 07/28/2024 3:18 AM
[2024-07-28] MEDS ORDERED: METOPROLOL TARTRATE 5 MG/5 ML INJ IV ONE ×3 (03:26→03:50)
[2024-07-28] MEDS ORDERED: METOPROLOL TAR 50 MG TAB ONE (03:29)
[2024-07-28] MEDS: DILTIAZEM HCL 60 MG TAB ONE (04:50)
[2024-07-28] MEDS ORDERED: MAGNESIUM SULFATE 1 gm IVPB 1 GM/100 ML BAG IV ONE (04:51)
[2024-07-28] MEDS ORDERED: SOTALOL HCL 80 MG TAB ONE (04:51)
--- NOTE | 2024-07-28 05:08 | RAD REPORT ---
PROCEDURE: CT Chest, Abdomen and Pelvis Without Intravenous Contrast CLINICAL INDICATION: The patient is 88 years old and is Female; Pain, trauma. TECHNIQUE: Axial computed tomography images of the chest, abdomen and pelvis without intravenous contrast. Sag ittal and coronal reformatted images were created and reviewed. This CT exam was performed using one or more of the following dose reduction techniques: automated exposure control, adjustment of t he mA and/or kV according to patient size, and/or use of iterative reconstruction technique. COMPARISON: CT Chest abdomen pelvis 07/28/2024. FINDINGS: CHEST: LUNGS: Calcified granulomas noted in the right middle lobe. Trace biapical scarring. No mass. No consolidation. PLEURAL SPACE: Unremarkable No significant effusion. No pneumothorax. HEART: Cardiomegaly with left atrial dilatation. No significant pericardial effusion. ABDOMEN: LIVER: Low attenuation foci in the liver consistent with hepatic cysts. No follow-up is necessary . GALLBLADDER AND BILE DUCTS: Unremarkable No calcified stones. No ductal dilation. PANCREAS: Diffusely atrophic appearance of the pancreas with no ductal dilatation or solid or cysti c mass appreciated. SPLEEN: Multiple splenic calcified granulomas. ADRENALS: Unremarkable No mass. KIDNEYS AND URETERS: Simple renal cysts. No follow-up of these simple cysts is necessary. No obstructing stones. No hydronephrosis. STOMACH AND BOWEL: Partial right hemicolectomy with enterocolonic and transverse colonic anastomosi s appearing widely patent. Colonic diverticulosis without evidence of acute diverticulitis. No obstruction. PELVIS: APPENDIX: See above. BLADDER: Mild distention of the urinary bladder with no significant wall thickening or perivesicular fat stranding. Trabeculated appearance of the urinary bladder margin, suggesting chronic outflow obstruction. No stones. REPRODUCTIVE: Hysterectomy. CHEST, ABDOMEN and PELVIS: INTRAPERITONEAL SPACE: Unremarkable No significant fluid collection. No free air. BONES/JOINTS: Mild compression deformity of the superior T11 endplate with associated Schmorl's nod e. No involvement of the posterior elements or posterior cortex. Mild levoscoliotic curvature of the lumbar spine. No displaced or depressed rib fractures. No appreciable sternal or acute vertebral fractures. No dislocation. SOFT TISSUES: Left chest subcutaneous cardiac device with leads remaining in the right atria and ri ght ventricle. VASCULATURE: Ectasia of the main pulmonary artery, measuring up to 3.4 cm, suggesting pulmonary hyp ertension. Mild multivessel coronary calcifications. Mild calcified atherosclerosis of the thoracic and abdominal aorta without aneurysmal dilatat ion. LYMPH NODES: Unremarkable No enlarged lymph nodes. IMPRESSION: 1. Urinary bladder appearance suggests chronic outflow obstruction. Recommend clinical correlation for urinary retention or neurogenic bladder. 2. Otherwise, allowing for lack of intravascular contrast, no acute abnormality of the chest, abdom en, or pelvis. 3. Chronic appearing compression deformity of the superior T11 endplate with associated Schmorl's n ode. 4. Ectasia of the main pulmonary artery, measuring up to 3.4 cm, suggesting pulmonary hypertension. 5. Cardiomegaly with left atrial dilatation. 6. Additional nonacute findings as above. Electronically signed by: Taras Denis MD 07/28/2024 04:56 AM CDT RP Due to temporary technical issues with the PACS/M87 reporting system, reports are being mann d by the in-house radiologist without review as a courtesy to ensure prompt reporting the interpreting radiologist is fully responsible for the content of the report. Transcribed Date/Time: 07/28/2024 5:08 AM
[2024-07-28 05:32] VITALS: BMI 27.1
--- NOTE | 2024-07-28 05:35 | RAD REPORT ---
PROCEDURE: CT Left Lower Extremity Without Intravenous Contrast, Knee CLINICAL INDICATION: The patient is 88 years old and is Female; FALL LEG PAIN TECHNIQUE: Axial computed tomography images of the left knee without intravenous contrast. Sagittal and dash l reformatted images were created and reviewed. This CT exam was performed using one or more of the following dose reduction techniques: automated exposure control, adjustment of the mA and/or kV according to patient size, and/or use of iterative reconstruction technique. COMPARISON: 07/28/2024 left knee radiographs FINDINGS: BONES/JOINTS: Mildly impacted oblique fracture of the proximal left fibular metaphysis and head. Transverse fracture of the proximal left tibial metaphysis. Thin, nondisplaced vertical fracture exte nding from the transverse fracture line through the proximal left tibial articular surface, just lateral to the anterior aspect of the left medial tuberosity and just medial to the posterior aspect of the left medial tuberosity. Additional obliquely oriented fracture through the lateral left tibial tuberosity, extending through the lateral margin of the tibial metaphysis through the surface of the left lateral tibial plateau. No impaction/compression of the medial or lateral tibial plateau surface. Moderate-sized left knee joint effusion. No dislocation. No appreciable fracture of the visualized distal left femur. No patellar fracture. SOFT TISSUES: Subcutaneous edema demonstrated along the anterior and lateral aspects of the left kn ee and tibia and fibula respectively. IMPRESSION: 1. Mildly impacted, nondisplaced Schatzker type tibial plateau fracture (transverse metaphyseal with vertical fractures through the medial and lateral tibial plateaus as above). 2. Mildly impacted oblique fracture through the proximal left fibular metaphysis and head. 3. Moderate-sized left knee joint effusion. Electronically signed by: Taras Denis MD 07/28/2024 05:30 AM CDT Due to temporary technical issues with the PACS/[employer] reporting system, reports are being mann d by the in-house radiologist without review as a courtesy to ensure prompt reporting the interpreting radiologist is fully responsible for the content of the report. Transcribed Date/Time: 07/28/2024 5:34 AM
--- NOTE | 2024-07-28 05:59 | RAD REPORT ---
EXAM: XR Chest, 1 View CLINICAL HISTORY: COUGH TECHNIQUE: Frontal view of the chest. COMPARISON: No relevant prior studies available. FINDINGS: Lungs: Coarsened interstitial markings. No focal consolidation. Pleural space: Unremarkable. No pneumothorax. Heart: Unremarkable. No cardiomegaly. Mediastinum: Unremarkable. Normal mediastinal contour. Bones/joints: Unremarkable. No acute fracture. Vasculature: Thoracic aortic atherosclerosis. Tubes, lines and devices: Left chest wall dual-lead pacer. IMPRESSION: No acute disease. Electronically signed by: Ramonita Gonzalez MD 07/28/2024 02:38 AM CDT RP Due to temporary technical issues with the PACS/Clixtr reporting system, reports are being mann d by the in-house radiologist without review as a courtesy to ensure prompt reporting the interpreting radiologist is fully responsible for the content of the report. Transcribed Date/Time: 07/28/2024 5:59 AM
--- NOTE | 2024-07-28 06:00 | RAD REPORT ---
EXAM: XR Left Knee, 3 Views CLINICAL HISTORY: PAIN TECHNIQUE: Three views of the left knee. COMPARISON: No relevant prior studies available. FINDINGS: Bones/joints: Osseous structures are osteopenic. Predominantly transversely oriented minimally angu lated and impacted proximal tibial metaphyseal fracture. Minimally displaced and angulated fibular head/neck fracture. No dislocation. Small to moderate joint effusion. Soft tissues: Soft tissue swelling most pronounced anterolaterally. No radiopaque foreign body. IMPRESSION: Proximal tibial and fibular fractures. Consider CT to evaluate for involvement of the tibial plateau. Electronically signed by: Ramonita Gonzalez MD 07/28/2024 02:42 AM CDT Due to temporary technical issues with the PACS/[employer] reporting system, reports are being mann d by the in-house radiologist without review as a courtesy to ensure prompt reporting the interpreting radiologist is fully responsible for the content of the report. Transcribed Date/Time: 07/28/2024 5:59 AM
--- NOTE | 2024-07-28 06:00 | RAD REPORT ---
EXAM: XR Left Tibia and Fibula, 2 Views CLINICAL HISTORY: PAIN TECHNIQUE: Frontal and lateral views of the left tibia and fibula. COMPARISON: No relevant prior studies available. FINDINGS: Bones/joints: Osseous structures are osteopenic. Predominantly transversely oriented minimally angu lated and impacted proximal tibial metaphyseal fracture. Minimally displaced and angulated fibular head/neck fracture. No dislocation. Soft tissues: Soft tissue swelling most pronounced anterolaterally. No radiopaque foreign body. IMPRESSION: Proximal tibial and fibular fractures. Consider CT to evaluate for involvement of the tibial plateau. Electronically signed by: Ramonita Gonzalez MD 07/28/2024 02:41 AM CDT RP Due to temporary technical issues with the PACS/hybris reporting system, reports are being mann d by the in-house radiologist without review as a courtesy to ensure prompt reporting the interpreting radiologist is fully responsible for the content of the report. Transcribed Date/Time: 07/28/2024 6:00 AM
[2024-07-28] MEDS: MORPHINE 2 MG/ML SYR IV PRN (06:20)
[2024-07-28] MEDS: POTASSIUM CL SA 10 MEQ TAB PO ONE (07:49)
[2024-07-28] MEDS ORDERED: ONDANSETRON 4 MG/2 ML VIAL IV PRN (08:30)
[2024-07-28] MEDS: MAGNESIUM SULFATE 1 gm IVPB 1 GM/100 ML BAG IV ONE (08:50)
[2024-07-28] MEDS ORDERED: ENOXAPARIN 40 MG/0.4 ML SQ SCH (09:00)
[2024-07-28] MEDS: KCL 20 MEQ/100 mL IVPB 100 ML IV SCH (09:23)
--- NOTE | 2024-07-28 09:45 | P.CNS ---
Date of Consult: 07/28/24 Chief Complaint: Falls History of Present Illness: Patient with PMH of atrial fibrillation, pacemaker placement, presented with ground level fall and fracture to her left tib/fib, cardiology were consulted for preoperative clearance, patient is old, demented and has not been following at our office, she denies having any active chest pain, no palpitations, no syncope. Allergies povidone-iodine [From Betadine] Allergy (Verified 07/26/20 10:26) Rash soap [From Betadine] Allergy (Verified 07/26/20 10:26) Rash Home medications list reviewed: Yes Home Medications: Acetaminophen [Pain Relief Extra Strength] 500 mg PO Q4HP PRN 04/19/19 Apixaban [Eliquis *] 2.5 mg PO BID 04/19/19 Cholecalciferol (Vitamin D3) [Vitamin D3] 2 cap PO DAILY 04/19/19 Omeprazole Magnesium [Prilosec Otc] 40 mg PO DAILY 04/19/19 Ropinirole HCl [Requip*] 0.5 mg PO TID 04/19/19 Fluticasone [Flonase 50MCG Nasal [place]*] 1 sprays CIERRA BID #1 btl 06/05/19 Acetaminophen [Tylenol Extra Strength] 500 mg PO TID 07/28/24 Cyanocobalamin (Vitamin B-12) [B-12] 1,000 mcg PO DAILY 07/28/24 Diphenhydramine [Benadryl Tab/Cap] 25 mg PO Q12HP PRN 07/28/24 Ibuprofen [Motrin] 800 mg PO Q12HP PRN 07/28/24 Levothyroxine Sodium 25 mcg PO WMHTS1OD 07/28/24 Loperamide HCl [Loperamide] 2 mg PO Q6HP PRN 07/28/24 OLANZapine [Zyprexa] 2.5 mg PO BEDTIME 07/28/24 PARoxetine HCL [Paxil] 30 mg PO BEDTIME 07/28/24 Propylene Glycol/Peg 400/Pf [Lubricant Eye 0.4%-0.3% Drops] 2 gtt EACH EYE Q6HP PRN 07/28/24 Sotalol HCl [Betapace] 120 mg PO BID 07/28/24 dilTIAZem HCL [Cardizem] 120 mg PO DAILY 07/28/24 lisinopriL [Lisinopril] 40 mg PO DAILY 07/28/24 - Past Medical/Surgical History Diabetic: No -: History of colon cancer -: 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 She is a . - Family History Father Medical History: Cancer Mother Medical History: Cancer - Social History Smoking Status: Never smoker Alcohol use: No CD- Drugs: No Caffeine use: No Place of Residence: Home Review of Systems 10-point ROS is otherwise unremarkable Physical Examination Temp Pulse Resp BP Pulse Ox 98.1 F 65 20 107/55 L 93 07/28/24 08:00 07/28/24 08:00 07/28/24 08:00 07/28/24 08:00 07/28/24 08:00 General: Alert, In no apparent distress HEENT: Atraumatic, PERRLA, Mucous membr. moist/pink, EOMI, Sclerae nonicteric Neck: Supple, 2+ carotid pulse no bruit, No LAD, Without JVD or thyroid abnormality Respiratory: Clear to auscultation bilaterally, Normal air movement Cardiovascular: Regular rate/rhythm, Normal S1 S2 Gastrointestinal: Normal bowel sounds, No tenderness Musculoskeletal: No tenderness Integumentary: No rashes Neurological: Normal gait, Normal speech, Normal tone, Normal affect Lymphatics: No axilla or inguinal lymphadenopathy Laboratory Data (last 24 hrs) 07/28/24 07/28/24 07/28/24 01:45 01:45 01:45 WBC 7.50 Hgb 12.3 Hct 36.4 Plt Count 208 PT 17.0 H INR 1.52 Sodium 142 Potassium 3.2 L BUN 15 Creatinine 0.92 Glucose 106 Magnesium 1.8 Total Bilirubin 1.1 H AST < 10 L ALT < 14 Alkaline Phosphatase 62 Lipase 12 L - Problems (1) Preoperative clearance Current Visit: Yes Status: Acute Plan: Patient is not having any active cardiac symptoms, no chest pain, no palpitations, no recent syncope. get echo if normal then patient is cleared as moderate cardiac risk for complications (2) Atrial fibrillation Current Visit: Yes Status: Acute Plan: please continue Sotalol 80 mg po BID Ok to hold anticoagulation until after surgery.
--- NOTE | 2024-07-28 11:29 | EKG ---
Test Date: 2024-07-28 Test Time: 01:48:02 Material Stockkeeper Yard: PAULA MEASUREMENT RESULTS: Intervals: Rate: 74 OR: 148 QRSD: 90 QT: 444 QTc: 492 [place]: P: 84 OR: 148 QRS: 56 T: 76 INTERPRETIVE STATEMENTS: Demand pacemaker, interpretation is based on intrinsic rhythm Sinus rhythm with occasional premature ventricular complexes Nonspecific ST abnormality Prolonged QT Abnormal ECG Compared to ECG 07/26/2020 09:40:58 Ventricular premature complex(es) now present ST (T wave) deviation now present Prolonged QT interval now present Atrial-paced complex(es) or rhythm no longer present Electronically Signed On 07-28-24 11:28:29 CDT by Chang Knight
[2024-07-28] MEDS ORDERED: DILTIAZEM HCL 120 MG PO SCH (11:30)
--- NOTE | 2024-07-28 11:41 | P.PN ---
Date of Service: 07/28/24 Subjective Awake, oxygen level low likely 2/2 morphine She is moving all extremities no new complaints ROS 10 point ROS as noted above, otherwise negative Physical Exam General: Alert, Oriented x3, Moderate distress HEENT: Atraumatic, Normocephalic Neck: Supple Respiratory: Clear to auscultation bilaterally, Normal air movement Cardiovascular: Regular rate/rhythm, Normal S1 S2 Capillary refill: <2 Seconds Gastrointestinal: Soft and benign, W/out hepatosplenomegaly Musculoskeletal: No clubbing, Swelling, Tenderness Integumentary: No rashes, No breakdown Neurological: Normal speech, Cranial nerves 3-12 intact, Normal reflexes 2+ Lymphatics: No axilla or inguinal lymphadenopathy Vitals Reviewed Problem list Left tibial and fibular fracture Atrial fibrillation Hypertension Hyperlipidemia Assessment and Plan Left tibial and fibular fracture History of fall Pain control Xray Findings noted Orthopedic consultation- reports non-operative Physical Therapy consulted Atrial fibrillation Status post pacemaker Monitor closely on telemetry continued anticoagulation Will get an echocardiogram Cardiology consult for preop clearance Continue home medications Hypertension Continue home medications and titrate as needed Hyperlipidemia Continue statin DVT ppx SCD Full code LOS 2-3 days
--- NOTE | 2024-07-28 11:43 | ECHO ---
HEIGHT: 5 ft 2 in WEIGHT: 148 lb 0 oz DATE OF STUDY: 07/28/[address]: Jose Fuentes DO 2-DIMENSIONAL: YES M.MODE: YES DOPPLER: YES COLOR FLOW: YES TDS: NO PORTABLE: YES DEFINITY: NO BUBBLE STUDY: NO DIAGNOSIS: PREOP CARDIAC HISTORY: CATHERIZATION:YES SURGERY: NO PROSTHETIC VALVE: NO PACEMAKER: YES MEASUREMENTS (cm) DIASTOLIC (NORMALS) SYSTOLIC (NORMALS) IVSd 0.9 (0.6-1.2) LA Diam 3.2 (1.9-4.0) LVEF 76% LVIDd 4.2 (3.5-5.7) LVIDs 2.4 (2.0-3.5) %FS 44% LVPWd 0.9 (0.6-1.2) Ao Diam 2.8 (2.0-3.7) 2 DIMENSIONAL ASSESSMENT: RIGHT ATRIUM: NORMAL LEFT ATRIUM: SEVERELY DILATED RIGHT VENTRICLE: NORMAL LEFT VENTRICLE: NORMAL TRICUSPID VALVE: TRACE TRICUSPID REGURGITATION MITRAL VALVE: MODERATE MITRAL ANNULAR CALCIFICATION, TRACE MITRAL REGURGITATION PULMONIC VALVE: NORMAL AORTIC VALVE: CALCIFIED PERICARDIAL EFFUSION: NONE AORTIC ROOT: NORMAL LEFT VENTRICULAR WALL MOTION: NORMAL. DOPPLER/COLOR FLOW: GRADE III DIASTOLIC DYSFUNCTION. COMMENTS: 1. NORMAL LEFT VENTRICULAR SYSTOLIC FUNCTION. LEFT VENTRICULAR EJECTION FRACTION 60-65%. NORMAL WALL MOTION. 2. RESTRICTIVE DIASTOLIC FUNCTION. 3. SEVERELY DILATED LEFT ATRIUM. 4. NORMAL FILLING PRESSURE. RIGHT ATRIAL PRESSURE 0-5 mmHg. TECHNOLOGIST: DANIE DALEY
[2024-07-28] MEDS: ACETAMINOPHEN 325 MG TABLET PO PRN (12:07)
[2024-07-28] MEDS: ROPINIROLE HCL 0.25 MG TAB PO SCH (13:12)
[2024-07-28] MEDS: NA CHLORIDE 0.9% 500 ML IV SCH (17:11)
[2024-07-28 18:30] LABS: Specific Gravity 1.016 (1.005-1.030); Sqamous Epithelial <5 /HPF (None Seen); Urine Bacteria None Seen /HPF (<20); Urine Bilirubin NEGATIVE (Negative); Urine Blood Negative (Negative); Urine Clarity Extremely Turbid (Clear); Urine Color Light-Yellow (Yellow); Urine Crystals Unidentified Few /HPF (None Seen); Urine Culture Reflex Order NOT NEEDED; Urine Glucose NEGATIVE (Negative); Urine Ketones NEGATIVE (Negative); Urine Microscopic Reflex YN ORDER UMIC; Urine Mucus Slight /HPF (None Seen); Urine Nitrite NEGATIVE (Negative); Urine Protein NEGATIVE (Negative); Urine Urobilinogen Normal (Normal); Urine WBC <5 /HPF (<5); Urine Yeast (Budding) Trace /HPF (None Seen); Urine pH 5.5 (5.0-7.0)
[2024-07-28] MEDS: APIXABAN 2.5 MG TABLET PO SCH (20:39)
[2024-07-28] MEDS: OLANZapine 2.5 MG TAB PO SCH (20:39)
[2024-07-28] MEDS: SOTALOL HCL 80 MG TAB PO SCH (20:39)
[2024-07-28] MEDS: PARoxetine HCL 10 MG TAB PO SCH (20:39)
[2024-07-28] MEDS ORDERED: SOTALOL HCL 120 MG PO SCH (21:00)
[2024-07-28] MEDS ORDERED: PAROXETINE HCL 30 MG PO SCH (21:00)
[2024-07-29 04:33] LABS: Absolute Eosinophils 0.1 K/uL (0-0.5); Absolute Lymphocytes (CBC) 1.4 K/uL (0.7-4.9); Absolute Monocytes 0.7 K/uL (0.1-1.3); Absolute Neutrophil 5.9 K/uL (1.8-8.0); Basophils % 0.5 % (0-1.3); Eosinophils % 1.7 % (0-4.4); Hematocrit 35.4 % (36.0-45.0); Hemoglobin 11.9 g/dL (12.0-15.0); Lymphocytes % 17.6 % (15.3-44.8); MCH 31.1 pg (27.0-35.0); MCHC 33.5 g/dL (32.0-36.0); MCV 92.7 fL (80-100); MPV 8.5 fL (7.6-11.3); Monocytes % 8.4 % (3.3-12.3); Neutrophils % 71.8 % (41.7-73.7); Platelets 182 thou/uL (152-406); RBC Red Blood Cell Count 3.81 M/uL (3.86-4.86); Red Cell Distribution Width 13.7 % (12.1-15.2)
[2024-07-29 04:58] LABS: AST/SGOT 12 U/L (15-37); Albumin 2.7 g/dL (3.4-5.0); Albumin/Globulin Ratio 0.8 (1.1-1.8); Alkaline Phosphatase 56 U/L (45-117); BUN Blood Urea Nitrogen 12 mg/dL (7-18); Bicarbonate 27 mEq/L (21-32); Bilirubin Total 0.8 mg/dL (0.2-1.0); Globulin 3.4 g/dL (2.3-3.5); Glomerular Filtration Rate 71 ml/min (=/>90); Glucose Level 105 mg/dL (74-106); Protein, Total 6.1 g/dL (6.4-8.2); Sodium Level 139 mEq/L (136-145)
[2024-07-29 04:59] LABS: ALT/SGPT < 14 U/L (13-56)
[2024-07-29] MEDS: LEVOTHYROXINE SOD 0.025 MG TAB PO SCH (06:02)
[2024-07-29] MEDS: DILTIAZEM HCL 60 MG TAB PO SCH (08:26)
[2024-07-29] MEDS: lisinopriL 20 MG TAB PO SCH (08:29)
[2024-07-29] MEDS: PANTOPRAZOLE 40MG TABLET PO SCH (08:30)
[2024-07-29] MEDS ORDERED: HOME MED 1 EA UNK (Lisinopril [Lisinopril] 40 MG Tablet) PO SCH (09:00)
[2024-07-29] MEDS ORDERED: HOME MED 1 EA UNK (Omeprazole Magnesium [Prilosec Otc] 20 MG Tablet.Dr) PO SCH (09:00)
--- NOTE | 2024-07-29 10:57 | EKG ---
Test Date: 2024-07-28 Test Time: 03:47:10 Insurance Counselor: DEIDRA MEASUREMENT RESULTS: Intervals: Rate: 125 [place]: QRSD: 82 QT: 344 QTc: 496 [place]: P: NC: QRS: 65 T: 52 INTERPRETIVE STATEMENTS: Atrial fibrillation Marked ST abnormality, possible inferior subendocardial injury Abnormal ECG Compared to ECG 07/28/2024 03:20:22 No significant changes Electronically Signed On 07-29-24 10:55:28 CDT by Chang Knight
--- NOTE | 2024-07-29 10:57 | EKG ---
Test Date: 2024-07-28 Test Time: 03:20:22 Medicinal Plant Picker: DEIDRA MEASUREMENT RESULTS: Intervals: Rate: 118 OR: QRSD: 88 QT: 278 QTc: 389 [place]: P: OR: QRS: 65 T: 266 INTERPRETIVE STATEMENTS: Atrial fibrillation Marked ST abnormality, possible inferior subendocardial injury Abnormal ECG Compared to ECG 07/28/2024 01:48:02 Ventricular-paced complex(es) or rhythm no longer present Sinus rhythm no longer present Ventricular premature complex(es) no longer present Prolonged QT interval no longer present ST (T wave) deviation still present Electronically Signed On 07-29-24 10:55:34 CDT by Chang Knight
--- NOTE | 2024-07-29 13:26 | P.PN ---
Subjective Date of Service: 07/29/24 Chief Complaint: Falls No acute events overnight. Lying in bed, comfortable Review of Systems Unremarkable General: Unremarkable Eyes: Unremarkable ENT: Unremarkable Respiratory: Unremarkable Cardiovascular: Unremarkable Gastrointestinal: Unremarkable Genitourinary: Unremarkable Musculoskeletal: Unremarkable Neurological: Unremarkable Physical Examination - Vital Signs Temperature: 98.5 F Blood Pressure: 116/54 Pulse: 65 Respirations: 20 Pulse Ox (%): 90 - Physical Exam General: Alert, Oriented x3 HEENT: Atraumatic Neck: Supple Respiratory: Diminished Cardiovascular: No edema Gastrointestinal: Normal bowel sounds Musculoskeletal: No clubbing, No swelling, Other (Left lower extremity in a brace) Neurological: Normal gait Lymphatics: No axilla or inguinal lymphadenopathy External genitalia: No edema Assessment And Plan - Plan Left tibial and fibular fracture History of fall Pain control Xray Findings noted Orthopedic consultation- reports non-operative Physical Therapy consulted Atrial fibrillation on Eliquis Status post pacemaker Monitor closely on telemetry continued anticoagulation Cardiology consult for preop clearance Continue home medications Hypertension Continue home medications and titrate as needed Hyperlipidemia Continue statin Disposition: Pending PT/OT recommendation. Likely discharge back to alf facility
[2024-07-30 07:24] LABS: Absolute Eosinophils 0.2 K/uL (0-0.5); Absolute Lymphocytes (CBC) 1.5 K/uL (0.7-4.9); Absolute Monocytes 0.7 K/uL (0.1-1.3); Absolute Neutrophil 5.4 K/uL (1.8-8.0); Basophils % 0.4 % (0-1.3); Eosinophils % 2.6 % (0-4.4); Hematocrit 33.4 % (36.0-45.0); Hemoglobin 11.2 g/dL (12.0-15.0); Lymphocytes % 18.7 % (15.3-44.8); MCH 31.1 pg (27.0-35.0); MCHC 33.5 g/dL (32.0-36.0); MCV 92.9 fL (80-100); MPV 8.8 fL (7.6-11.3); Monocytes % 9.2 % (3.3-12.3); Neutrophils % 69.1 % (41.7-73.7); Platelets 185 thou/uL (152-406); Red Cell Distribution Width 13.7 % (12.1-15.2)
[2024-07-30 09:12] LABS: Anion Gap 8.1 mEq/L (5.0-15.0); Magnesium 1.8 mg/dL (1.6-2.4); Potassium 4.1 mEq/L (3.5-5.1)
[2024-07-30 10:05] VITALS: O2SAT 95
[2024-07-30] MEDS: MAGNESIUM SULFATE 1 gm IVPB 1 GM/100 ML BAG IV ONE (11:50)
--- NOTE | 2024-07-30 12:30 | P.DS ---
Admission Date: 07/28/24 Discharge Date: 07/30/24 Disposition: TRANSFER TO CUSTODIAL Discharge Condition: FAIR Reason for Admission: Falls Brief History of Present Illness: 88 yrs old Female with past medical history of hypertension, hyperlipidemia, atrial fibrillation status post pacemaker, GERD, osteoarthritis, hypothyroidism, osteoporosis, chronic diarrhea, history of colon cancer and uterine cancer, ataxia, depression, gastrointestinal mucositis, who was brought to ER after suffering a fall. Patient fell from upright position while standing hitting lateral aspect of the left knee and suffering a lot of pain in left knee and ankle. She fell in yesterday. Denies any syncope or loss of consciousness. Denies any head injury. No fever or chills. No chest pain or shortness of breath. Patient was assessed in the ER and was found to have left tib-fib fracture and was admitted for further management and orthopedic consultation Hospital Course: 88 yrs old Female with past medical history of hypertension, hyperlipidemia, atrial fibrillation status post pacemaker, on Eliquis, colon cancer and uterine cancer, admitted for left minimally displaced tibia & fibular fracture secondary to fall. In the ER, orthopedic surgeon was notified and after reviewing imaging recommended nonoperative management. Left lower extremity with was placed in a brace. Patient seen by PT OT. Also received pain control and eventually discharged back to care home for rehab. Vital Signs/Physical Exam: Temp Pulse Resp BP Pulse Ox 98.3 F 97 H 17 103/76 89 L 07/30/24 12:00 07/30/24 12:00 07/30/24 12:00 07/30/24 12:00 07/30/24 12:00 General: Alert, In no apparent distress, Oriented x3 HEENT: Atraumatic Neck: Supple Respiratory: Clear to auscultation bilaterally Cardiovascular: No edema Capillary refill: <2 Seconds Gastrointestinal: Normal bowel sounds Neurological: Normal gait, Normal speech, Normal strength at 5/5 x4 extr Laboratory Data at Discharge: WBC 7.90 thou/uL (4.3-10.9) 07/30/24 06:58 Hgb 11.2 g/dL (12.0-15.0) L 07/30/24 06:58 Hct 33.4 % (36.0-45.0) L 07/30/24 06:58 Plt Count 185 thou/uL (152-406) 07/30/24 06:58 PT 17.0 SECONDS (10-13.0) H 07/28/24 01:45 INR 1.52 07/28/24 01:45 Sodium 140 mEq/L (136-145) 07/30/24 06:58 Potassium 4.1 mEq/L (3.5-5.1) 07/30/24 06:58 BUN 10 mg/dL (7-18) 07/30/24 06:58 Creatinine 0.78 mg/dL (0.55-1.02) 07/30/24 06:58 Glucose 110 mg/dL (74-106) H 07/30/24 06:58 Magnesium 1.8 mg/dL (1.6-2.4) 07/30/24 06:58 Total Bilirubin 0.8 mg/dL (0.2-1.0) 07/29/24 04:22 AST 12 U/L (15-37) L 07/29/24 04:22 ALT < 14 U/L (13-56) 07/29/24 04:22 Alkaline Phosphatase 56 U/L (45-117) 07/29/24 04:22 Lipase 12 U/L (13-75) L 07/28/24 01:45 Home Medications: Acetaminophen [Pain Relief Extra Strength] 500 mg PO Q4HP PRN 04/19/19 Apixaban [Eliquis *] 2.5 mg PO BID 04/19/19 Cholecalciferol (Vitamin D3) [Vitamin D3] 2 cap PO DAILY 04/19/19 Omeprazole Magnesium [Prilosec Otc] 40 mg PO DAILY 04/19/19 Ropinirole HCl [Requip*] 0.5 mg PO TID 04/19/19 Fluticasone [Flonase 50MCG Nasal [place]*] 1 sprays CIERRA BID #1 btl 06/05/19 Acetaminophen [Tylenol Extra Strength] 500 mg PO TID 07/28/24 Cyanocobalamin (Vitamin B-12) [B-12] 1,000 mcg PO DAILY 07/28/24 Diphenhydramine [Benadryl*] 25 mg PO Q12HP PRN 07/28/24 Levothyroxine Sodium 25 mcg PO [id number] 07/28/24 Loperamide HCl [Loperamide] 2 mg PO Q6HP PRN 07/28/24 OLANZapine [Zyprexa*] 2.5 mg PO BEDTIME 07/28/24 PARoxetine HCL [Paxil] 30 mg PO BEDTIME 07/28/24 Propylene Glycol/Peg 400/Pf [Lubricant Eye 0.4%-0.3% Drop] 2 gtt EACH EYE Q6HP PRN 07/28/24 Sotalol HCl [Betapace] 120 mg PO BID 07/28/24 dilTIAZem HCL [Cardizem] 120 mg PO DAILY 07/28/24 lisinopriL [Lisinopril] 40 mg PO DAILY 07/28/24 Followup: NONE,NONE [Primary Care Provider] -
[2024-07-30] MEDS: Ringers Lactate 500 ML IV ONE ×2 (12:45→14:30)
[2024-07-30 16:27] VITALS: BP 118/61; TEMP 98.1
== END 2024-07-30 17:08 | DRG 563 ==
LOC: ER 01:10 → 2ND 02:59
PROVIDERS: ADMIT Family Medicine; ATTEND Internal Medicine
DX: S82.202A Unspecified fracture of shaft of left tibia, initial encounter for closed fracture (principal); S82.402A Unspecified fracture of shaft of left fibula, initial encounter for closed fracture; W18.30XA Fall on same level, unspecified, initial encounter; Y92.099 Unspecified place in other non-institutional residence as the place of occurrence of the external cause; I10 Essential (primary) hypertension; I48.0 Paroxysmal atrial fibrillation; E78.5 Hyperlipidemia, unspecified; K21.9 Gastro-esophageal reflux disease without esophagitis; M19.90 Unspecified osteoarthritis, unspecified site; E03.9 Hypothyroidism, unspecified; M81.0 Age-related osteoporosis without current pathological fracture; R27.0 Ataxia, unspecified; F32.A Depression, unspecified; E87.6 Hypokalemia; G25.81 Restless legs syndrome; R29.6 Repeated falls; Z95.0 Presence of cardiac pacemaker; Z79.01 Long term (current) use of anticoagulants; Z79.899 Other long term (current) drug therapy; Z88.3 Allergy status to other anti-infective agents; Z88.9 Allergy status to unspecified drugs, medicaments and biological substances; Z88.8 Allergy status to other drugs, medicaments and biological substances; Z85.038 Personal history of other malignant neoplasm of large intestine; Z85.42 Personal history of malignant neoplasm of other parts of uterus; Z90.710 Acquired absence of both cervix and uterus; Z80.9 Family history of malignant neoplasm, unspecified
CPT/HCPCS: 36415; 70450; 71045; 71250; 72125; 73700; 74176; 80048; 80053; 80076; 81001; 83690; 83735; 83880; 84132; 84484; 85025; 85610; 93005; 93306; 94760; 96361; 96374; 96375; 97110; 97161; 99285; J2270; J2405; J3010; J3475; J3480; J7040; J7120